=== PATIENT | female | born 1975 | race Caucasian/White ===

== ENCOUNTER 2021-05-16 14:04 | Inpatient (IN) ==
[2021-05-16] MEDS ORDERED: FAMOTIDINE 20MG IV PUSH 20 MG/5 ML SYR IV STA (16:36)
[2021-05-16] MEDS ORDERED: ONDANSETRON INJ 2 MG/ML 2 ML VIAL IV STA (16:36)
[2021-05-16] MEDS ORDERED: ACETAMINOPHEN 500 MG TAB PO STA (16:36)
[2021-05-16] MEDS ORDERED: SODIUM CHLORIDE 0.9% 500 ML IV SCH (16:45)
--- NOTE | 2021-05-16 16:50 | Emergency Department Note ---
Impression & Plan 2019 novel coronavirus-infected pneumonia (NCIP), Nausea & vomiting, Lightheadedness, Hypoxia ED Provider Note Provider: Nick Escoto MD DATE OF SERVICE: 05/16/2021 CHIEF COMPLAINT: Weakness, dehydration, Covid HISTORY OF PRESENT ILLNESS: Patient is a 46-year-old female denies significant past medical history presenting here today stating that she first began to have some head cold symptoms on May 04. Began with significant symptoms of fatigue and nausea and increased weakness on May 08. Tested + May 12 for Covid. Was not vaccinated for Covid. Reports has had some fevers although have minimized. Denies significant shortness of breath. Reports diffuse myalgias and some heartburn symptoms and a bit of upper abdominal pain. She states she has been coughing so much although is prominently dry that she is having little bit of pain in her chest wall. Patient denies any syncope or falls but states she feels lightheaded. Patient states for the past week she is really been unable to eat or drink much of anything. Patient has tried some Zofran tablets at home for several days without improvement of her symptoms that she got from her primary care doctor. Patient denies significant diarrhea. Patient's family members otherwise have been recovering and are doing better. REVIEW OF SYSTEMS: A total of 10 review of systems was obtained and negative except as stated above in the HPI. PAST MEDICAL HISTORY: As noted above MEDICATIONS: Zofran tablets the last several days and [id number] Tylenol last at 2 AM last night. SOCIAL HISTORY: Lives at home with and 4 children PHYSICAL EXAM: GENERAL: alert and oriented in no acute distress on stretcher but very fatigued appearing Head: normocephalic and atraumatic EYES: No injection, discharge or icterus. NECK: Trachea midline. LUNGS: Airway patent. No retractions with some slight tachypnea. HEART: Regular rate and rhythm. Minimal diffuse chest wall tenderness ABDOMEN: Soft with minimal epigastric tenderness. Not peritoneal. SKIN: Acyanotic, warm, dry, without rashes EXTREMITIES: Without swelling, tenderness or deformity NEUROLOGICAL: No focal deficits. No aphasia. No facial droop or slurred speech. EK bpm normal sinus rhythm. No PVC or PAC. No acute ST segment elevation or depression. QTC 432. CONTINUOUS CARDIAC MONITORING: was ordered and showed a heart rate of 70-100s bpm in normal sinus rhythm to sinus tachycardia Patient's laboratory studies and imaging reviewed. Differential includes Infection, dehydration, metabolic abnormality, hypo/hyperglycemia, electrolyte disturbance, anemia, hypoxia, cardiac sources, intracerebral event, toxicologic, neurologic, as well as other pathologies. IMPRESSION/MEDICAL DECISION MAKING: Patient is quite fatigued in appearance and is suffering aftereffects likely from Covid. Has been unable to eat or drink much. Given some IV fluids here as well as some Tylenol and Pepcid. Patient febrile upon arrival but lower s uspicion for bacterial infection at this time. Chest x-ray is obtained. Pulse ox is tenuous resting in the room alternating between 91 to 89% on room air. Patient did desaturate into the low 80s on room air shortly thereafter and was placed on oxygen. Given dexamethasone. Lower suspicion given her abdominal exam for acute intra-abdominal pathology such as perforation, cholecystitis, or appendicitis. EKG and troponin were completed but lower suspicion for acute ACS/NC, however the possibility of some demand ischemia given her illness and concerns for dehydration exist. Chest x-ray completed with patchy opacities compatible with viral pneumonia. Leukopenia consistent with her Covid infection as well as a slight AST elevation. No lipase elevation indicative of acute pancreatitis. No severe electrolyte abnormalities signs of renal dysfunction currently. No anemia. No troponin elevation. Patient on reassessment having some improvement of her symptoms but again requiring a small amount of oxygen here. Given this discussed with the patient the need for further care and evaluation here at the hospital and the hospitalist will be contacted. DIAGNOSIS: COVID-19 pneumonia, hypoxia, nausea and vomiting, lightheadedness DISPOSITION: Hospitalist will evaluate Patient was agreeable with this plan. 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 Verified 05/12/21 13:09 Home Meds Previous Rx's Medication Instructions Recorded ondansetron HCl 4 mg tablet 4 mg PO Q8H PRN #12 tab 05/14/21 Results & Data (ED) Vital Signs Vital Signs - 24 hr 05/16/21 14:07 05/16/21 17:23 Temperature 39 C H Temperature Source Oral Pulse Rate 101 H Respiratory Rate 30 H Blood Pressure 89/61 L Blood Pressure Mean 70 Pulse Oximetry 92 64 L Oxygen Delivery Method Room Air Nasal Cannula Oxygen Flow Rate 2 Sepsis Recent Fever Within 48 Hours Yes Sepsis New/Unexplained Change in Mental Status N/A Sepsis Action Taken by Nursing No Action Required Laboratory Data Result diagrams: 05/16/21 16:58 05/16/21 16:58 Lab Results 05/16/21 05/16/21 05/16/21 Range/Units 16:58 16:58 16:58 WBC 2.49 L (4.8-10.8) K/uL RBC 4.70 (4.2-5.4) M/uL Hgb 14.3 (12.0-16.0) g/dL Hct 42.5 (37-47) % MCV 90.4 (80-100) fL MCH 30.4 (25-34) pg MCHC 33.6 (32-36) g/dL RDW Std Deviation 41.8 (36.4-46.3) fL RDW Coeff of Yessi 12.6 (11.5-14.5) % Plt Count 133 (130-400) K/uL MPV 10.8 H (7.4-10.4) fL Immature Gran % (Auto) 0.0 % Neut % (Auto) 61.9 % Lymph % (Auto) 27.7 % [place] % (Auto) 10.0 % Eos % (Auto) 0.0 % Baso % (Auto) 0.4 % Neut # (Auto) 1.54 (1.4-6.5) K/uL Lymph # (Auto) 0.69 L (1.2-3.4) K/uL [place] # (Auto) 0.25 (0.11-0.59) K/uL Eos # (Auto) 0.00 (0-0.5) K/uL Baso # (Auto) 0.01 (0-0.2) K/uL Immature Gran # (Auto) 0.00 (0.00-0.02) K/uL Sodium 136 (136-145) mmol/L Potassium 3.9 (3.5-5.1) mmol/L Chloride 104 (98-107) mmol/L Carbon Dioxide 27 (21-32) mmol/L Anion Gap 5.0 (3-11) BUN 13 (7-18) mg/dl Creatinine 1.06 (0.6-1.2) mg/dl Est Cr Clr Drug Dosing Not Reportable Est GFR ( Amer) 73.4 ml/min Est GFR (Non-Af Amer) 63.4 ml/min BUN/Creatinine Ratio 12.4 (10-20) Glucose 96 (70-99) mg/dl Calcium 8.3 L (8.5-10.1) mg/dl Magnesium 2.1 (1.8-2.4) mg/dl Total Bilirubin 0.4 (0.2-1) mg/dl AST 47 H (15-37) U/L ALT 37 (12-78) U/L Alkaline Phosphatase 53 (45-117) U/L Troponin I < 0.015 (0-0.045) ng/ml Total Protein 7.0 (6.4-8.2) gm/dl Albumin 3.0 L (3.4-5.0) gm/dl Globulin 4.0 (2.5-4.0) gm/dl Albumin/Globulin Ratio 0.7 L (0.9-2) Lipase 300 (73-393) U/L Procalcitonin Cancelled TSH 0.566 (0.300-4.500) uIu/ml Specimen Hemolysis COVID-19 Eval Order SARS-CoV-2 (PCR) (Negative) 05/16/21 05/16/21 Range/Units 17:17 17:17 WBC (4.8-10.8) K/uL RBC (4.2-5.4) M/uL Hgb (12.0-16.0) g/dL Hct (37-47) % MCV (80-100) fL MCH (25-34) pg MCHC (32-36) g/dL RDW Std Deviation (36.4-46.3) fL RDW Coeff of Yessi (11.5-14.5) % Plt Count (130-400) K/uL MPV (7.4-10.4) fL Immature Gran % (Auto) % Neut % (Auto) % Lymph % (Auto) % [place] % (Auto) % Eos % (Auto) % Baso % (Auto) % Neut # (Auto) (1.4-6.5) K/uL Lymph # (Auto) (1.2-3.4) K/uL [place] # (Auto) (0.11-0.59) K/uL Eos # (Auto) (0-0.5) K/uL Baso # (Auto) (0-0.2) K/uL Immature Gran # (Auto) (0.00-0.02) K/uL Sodium (136-145) mmol/L Potassium (3.5-5.1) mmol/L Chloride (98-107) mmol/L Carbon Dioxide (21-32) mmol/L Anion Gap (3-11) BUN (7-18) mg/dl Creatinine (0.6-1.2) mg/dl Est Cr Clr Drug Dosing Est GFR ( Amer) ml/min Est GFR (Non-Af Amer) ml/min BUN/Creatinine Ratio (10-20) Glucose (70-99) mg/dl Calcium (8.5-10.1) mg/dl Magnesium (1.8-2.4) mg/dl Total Bilirubin (0.2-1) mg/dl AST (15-37) U/L ALT (12-78) U/L Alkaline Phosphatase (45-117) U/L Troponin I (0-0.045) ng/ml Total Protein (6.4-8.2) gm/dl Albumin (3.4-5.0) gm/dl Globulin (2.5-4.0) gm/dl Albumin/Globulin Ratio (0.9-2) Lipase (73-393) U/L Procalcitonin TSH (0.300-4.500) uIu/ml Specimen Hemolysis COVID-19 Eval Order Covid19 at [facility] SARS-CoV-2 (PCR) POSITIVE A* (Negative) Administered Medications Discontinued Medications Acetaminophen (Acetaminophen 500 Mg Tab) 1,000 mg PO NOW STA Stop: 05/16/21 16:37 Last Admin: 05/16/21 17:11 Dose: 1,000 mg Documented by: [id number] Dexamethasone Sodium Phosphate (DexamethasonePf 10 Mg/Ml Vial) 6 mg IV NOW ONE Stop: 05/16/21 17:11 Last Admin: 05/16/21 17:20 Dose: 6 mg Documented by: [id number] Sodium Chloride (Nss) 500 mls @ 999 mls/hr IV .Q31M ANJU Stop: 05/16/21 17:15 Last Admin: 05/16/21 17:11 Dose: 999 mls/hr Documented by: [id number] Famotidine (Pepcid 20mg Iv Push) 20 mg in 5 mls @ 2.5 mls/min IV NOW STA Stop: 05/16/21 16:37 Last Admin: 05/16/21 17:10 Dose: 2.5 mls/min Documented by: [id number] Ondansetron HCl (Ondansetron Inj 2 Mg/Ml 2 Ml Vial) 4 mg IV NOW STA Stop: 05/16/21 16:37 Last Admin: 05/16/21 17:08 Dose: 4 mg Documented by: [id number] Imaging Data Radiologist's Impression: Chest X-Ray 05/16/21 16:36 XR chest 1V portable HISTORY: 46 years-old Female weakness, COVID acute shortness of breath. COMPARISON: Chest radiograph 01/31/2013 TECHNIQUE: Portable AP view of the chest FINDINGS: Cardiomediastinal and hilar silhouettes are within normal limits. Patchy multifocal bilateral airspace opacities. No pneumothorax, large pleural effusion or overt pulmonary edema. No acute fracture. IMPRESSION: Patchy multifocal airspace opacities are compatible with viral pneumonia. ACT 112: Negative or not required by law. The above report was generated using voice recognition software. It may contain grammatical, syntax or spelling errors. Electronically signed by: Sav Bowden M.D. 05/16/2021 4:55 PM Discharge Plan Visit Data Chief Complaint: Vomiting Stated Complaint: VOMITING DEHYDRATED ED Provider: Nick Escoto Discharge Problem: 2019 novel coronavirus-infected pneumonia (NCIP), Nausea & vomiting, Lightheadedness, Hypoxia Patient Disposition: Being Evaluated by Hospitalist Forms Stand Alone Forms: [employer] Prescriptions Prescriptions: No Action ondansetron HCl 4 mg tablet 4 mg PO Q8H PRN (Reason: nausea and vomiting) Qty: 12 RF: 0 Referrals Referrals: Dulce Munguia PA-C [Primary Care Provider] - Discharge Problem: Nausea & vomiting Qualifiers: Vomiting type: unspecified Vomiting Intractability: non-intractable Qualified Code(s): R11.2 - Nausea with vomiting, unspecified
--- NOTE | 2021-05-16 16:57 | XRay Report ---
XR chest 1V portable HISTORY: 46 years-old Female weakness, COVID acute shortness of breath. COMPARISON: Chest radiograph 01/31/2013 TECHNIQUE: Portable AP view of the chest FINDINGS: Cardiomediastinal and hilar silhouettes are within normal limits. Patchy multifocal bilateral airspac e opacities. No pneumothorax, large pleural effusion or overt pulmonary edema. No acute fracture. IMPRESSION: Patchy multifocal airspace opacities are compatible with viral pneumonia. ACT 112: Negative or not required by law. The above report was generated using voice recognition software. It may contain grammatical, syntax o r spelling errors. Electronically signed by: Sav Bowden M.D. 05/16/2021 4:55 PM
[2021-05-16] MEDS ORDERED: dexAMETHasone**PF** 10 MG/ML VIAL IV ONE (17:10)
[2021-05-16 17:28] LABS: Basophils # (auto) 0.01 K/uL (0-0.2); Basophils % (auto) 0.4 %; Hematocrit (blood only) 42.5 % (37-47); Hemoglobin 14.3 g/dL (12.0-16.0); Lymphocytes # (auto) 0.69 K/uL (1.2-3.4); Lymphocytes % (auto) 27.7 %; Mean Corpuscular Hemoglobin 30.4 pg (25-34); Mean Corpuscular Hgb Conc 33.6 g/dL (32-36); Mean Corpuscular Volume 90.4 fL (80-100); Mean Platelet Volume 10.8 fL (7.4-10.4); Monocytes # (auto) 0.25 K/uL (0.11-0.59); Neutrophils # (auto) 1.54 K/uL (1.4-6.5); Neutrophils % (auto) 61.9 %; Platelet Count 133 K/uL (130-400); RDW Coefficient of Variation 12.6 % (11.5-14.5); RDW Standard Deviation 41.8 fL (36.4-46.3); White Blood Count 2.49 K/uL (4.8-10.8)
[2021-05-16 17:53] LABS: Alanine Aminotransferase 37 U/L (12-78); Aspartate Aminotransferase 47 U/L (15-37); BUN Creatinine Ratio 12.4 (10-20); Blood Urea Nitrogen 13 mg/dl (7-18); Calcium 8.3 mg/dl (8.5-10.1); Carbon Dioxide 27 mmol/L (21-32); Chloride 104 mmol/L (98-107); Est GFR (African American) 73.4 ml/min; Est GFR (Non-African American) 63.4 ml/min; Glucose 96 mg/dl (70-99); Lipase 300 U/L (73-393); Magnesium 2.1 mg/dl (1.8-2.4); Potassium 3.9 mmol/L (3.5-5.1); Sodium 136 mmol/L (136-145)
[2021-05-16 17:57] LABS: Albumin Globulin Ratio 0.7 (0.9-2); Alkaline Phosphatase 53 U/L (45-117); Bilirubin,Total 0.4 mg/dl (0.2-1); Thyroid Stimulating Hormone 0.566 uIu/ml (0.300-4.500); Troponin I < 0.015 ng/ml (0-0.045)
[2021-05-16 19:07] LABS: C Reactive Protein 2.3 mg/dl (0-0.29); Ferritin 1406.1 ng/ml (8-388)
--- NOTE | 2021-05-16 19:11 | History & Physical Report ---
Date of Service May 16, 2021 Assessment & Plan (1) COVID: Plan: COVID 19 pneumonia with hypoxia- day 12 of illness - supportive care at this time - Hypoxia to 85 % on room air- continue decadron - Decadron 6mg IV daily - Oxygen support - NC/HFNC/CPAP/BIPAP/Intubation as needed - Self rotation and proning - CRP 2.30, ESR- 20, Ferritin 1406.1, PCT <0.05, Fibrinogen pending - Lymphopenia- follow daily CBC- likely related to COVID (2) Hypoxia: Plan: Hypoxia without respiratory failure - Continue to support and self prone as above (3) Hypocalcemia: Plan: 1GM calcium gluconate IV - likely related to poor nutritional intake - follow (4) DVT prophylaxis: Plan: Lovenox 40mg Subq BID- fibrinogen pending - adjust as warranted History of Present Illness Chief Complaint: Dizziness, Covid, shortness of breath Primary Care Provider: Dulce Munguia PA-C 46 YOF with past medical history of: carpal tunnel. Patient comes to the EMD today for known COVID with symptoms starting 28September- she had positive test on . She is not vaccinated. She started with headache, fevers, body aches and with nausea and vomiting. She has lost her sense of taste and smell. She continues to have nausea and decreased oral intake. She was feeling dizzy and fatigued and feels "much better" than when she came in. She received 500 ml saline, Zofran, and Pepcid. She was also noted to be hypoxic on room air and was placed on 2LNC with her SPo2 increase to 92-94% and RR in the low 20s. The patient is still having joint pain to her back and knees, which she feels is from being run down and lying in bed so much. Patient is on ~ day 12 of her illness. We discussed her day of illness and not likely benefiting from Remdesivir at this time, we discussed self rotational therapy and proning. Patient will be admitted to continue Decadron, IVF, symptom management and oxygen therapy. Will send biomarkers. Patient is unvaccinated and her COVID test on admission: POSITIVE Allergies Allergy/AdvReac Type Severity Reaction Status Date / Time lidocaine Allergy . Verified 05/12/21 13:09 Home Medications Medication Instructions Recorded Confirmed Type ondansetron HCl 4 mg tablet 4 mg PO Q8H PRN #12 tab 05/14/21 05/16/21 Rx acetaminophen 500 mg tablet 1,000 mg PO Q6H PRN 05/16/21 05/16/21 History (Tylenol Extra Strength) Past Med/Surg History Medical History Diarrhea Goiter Premenstrual syndrome Reflex incontinence Vitamin D insufficiency Social History Smoking Status: Never smoker Hx Alcohol Use: Yes Alcohol type: hard liquor Hx Substance Use: No Preferred Language: Mohawk Communication Ability: Effective Licensed Massage Therapist Required: No Beliefs That Will Affect Care: None marital status: Current Living Situation: Spouse Current Living Situation Comment: Lives with at home current occupational status: employed 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 How many Children do You have: 2 Other Information That Helps Us Care for You: No Feels Safe at Home: Yes Safety Concerns: Feels Safe At This Time caffeine: Yes Dental Care, Regularly: No Review of Systems Review of Systems: REVIEW OF SYSTEMS: Constitutional: (+) fever, sweats or chills Eyes: No diplopia, no worsening or blurred vision ENT: normal hearing, no trouble swallowing Respiratory: (+) cough, dyspnea at rest or on exertion Cardiovascular: No chest pain, tightness or palpitations Abdomen: nausea, vomiting, diarrhea, No pain, or constipation Musculoskeletal: (+) joint pain, calf pain, swelling Neurologic: No weakness, numbness/tingling, or balance problems Psychiatric: No anxiety or depression Skin: No rash or itch Physical Exam Physical Exam: PHYSICAL EXAM: General: awake, alert, no apparent distress Head: Normocephalic, atraumatic ENT: PERRL, EOMI, no pharyngeal exudate, mucous membranes moist Neuro: AAO x 3, speech clear and appropriate, strength intact bilaterally 5/5, sensation intact and equal all extremities and dermatomes, no pronator drift Chest: equal rise and fall of the chest, no accessory muscle use, no heaves or thrills, Clear to auscultation, on room air, Cardiac: Regular rate and rhythm, telemetry reviewed, skin warm dry, cap refill <3 seconds, peripheral pulses +2 no JVD, no murmur, no JVD, no edema GI: NABS x 4 quadrants, soft, nontender to palpation, no rebound, guarding or tenderness : Spontaneously voiding, no pain, no CVA tenderness, Extremities: Normal inspection, no peripheral edema or erythema, calfs nontender to palpation Psych: Normal mood and affect Skin: no rash or erythema Results & Data Results & Data ([facility]) Vital Signs (Past 12 Hours) Vital Signs Temp Pulse Resp BP Pulse Ox 05/16/21 18:40 90 25 H 109/58 L 93 05/16/21 18:30 93 H 18 91 05/16/21 18:20 91 H 24 92 05/16/21 18:10 91 H 15 94 05/16/21 18:00 93 H 18 94 05/16/21 17:50 94 H 22 94 05/16/21 17:40 92 H 25 H 95 05/16/21 17:30 91 H 25 H 94 05/16/21 17:23 64 L 05/16/21 17:20 92 H 23 94 05/16/21 17:10 93 H 17 94 05/16/21 17:00 99 H 21 94 05/16/21 16:50 99 H 20 97 05/16/21 16:40 96 H 29 H 85 L 05/16/21 16:34 99 H 23 92 05/16/21 14:07 39 C H 101 H 30 H 89/61 L 92 Laboratory Results Abnormal lab results 05/16/21 05/16/21 05/16/21 Range/Units 16:58 16:58 17:17 WBC 2.49 L (4.8-10.8) K/uL MPV 10.8 H (7.4-10.4) fL Lymph # (Auto) 0.69 L (1.2-3.4) K/uL Calcium 8.3 L (8.5-10.1) mg/dl Ferritin (8-388) ng/ml AST 47 H (15-37) U/L C-Reactive Protein (0-0.29) mg/dl Albumin 3.0 L (3.4-5.0) gm/dl Albumin/Globulin Ratio 0.7 L (0.9-2) SARS-CoV-2 (PCR) POSITIVE A* (Negative) 05/16/21 Range/Units 18:30 WBC (4.8-10.8) K/uL MPV (7.4-10.4) fL Lymph # (Auto) (1.2-3.4) K/uL Calcium (8.5-10.1) mg/dl Ferritin 1406.1 H (8-388) ng/ml AST (15-37) U/L C-Reactive Protein 2.30 H (0-0.29) mg/dl Albumin (3.4-5.0) gm/dl Albumin/Globulin Ratio (0.9-2) SARS-CoV-2 (PCR) (Negative) Diagnostic Findings Chest X-Ray 05/16/21 16:36 XR chest 1V portable HISTORY: 46 years-old Female weakness, COVID acute shortness of breath. COMPARISON: Chest radiograph 01/31/2013 TECHNIQUE: Portable AP view of the chest FINDINGS: Cardiomediastinal and hilar silhouettes are within normal limits. Patchy multifocal bilateral airspace opacities. No pneumothorax, large pleural effusion or overt pulmonary edema. No acute fracture. IMPRESSION: Patchy multifocal airspace opacities are compatible with viral pneumonia. ACT 112: Negative or not required by law. The above report was generated using voice recognition software. It may contain grammatical, syntax or spelling errors. Electronically signed by: Sav Bowden M.D. 05/16/2021 4:55 PM Medications Administered Home Medications ondansetron HCl 4 mg tablet 4 mg PO Q8H PRN #12 tab 05/14/21 [Rx] acetaminophen 500 mg tablet (Tylenol Extra Strength) 1,000 mg PO Q6H PRN 05/16/21 [History Confirmed 05/16/21] Discontinued Medications Acetaminophen (Acetaminophen 500 Mg Tab) 1,000 mg PO NOW STA Stop: 05/16/21 16:37 Last Admin: 05/16/21 17:11 Dose: 1,000 mg Documented by: [id number] Dexamethasone Sodium Phosphate (DexamethasonePf 10 Mg/Ml Vial) 6 mg IV NOW ONE Stop: 05/16/21 17:11 Last Admin: 05/16/21 17:20 Dose: 6 mg Documented by: [id number] Sodium Chloride (Nss) 500 mls @ 999 mls/hr IV .Q31M ANJU Stop: 10/09/21 17:15 Last Infusion: 05/16/21 18:00 Dose: 0 mls/hr Documented by: [id number] Admin: 05/16/21 17:11 Dose: 999 mls/hr Documented by: [id number] Famotidine (Pepcid 20mg Iv Push) 20 mg in 5 mls @ 2.5 mls/min IV NOW STA Stop: 05/16/21 16:37 Last Admin: 05/16/21 17:10 Dose: 2.5 mls/min Documented by: [id number] Ondansetron HCl (Ondansetron Inj 2 Mg/Ml 2 Ml Vial) 4 mg IV NOW STA Stop: 05/16/21 16:37 Last Admin: 05/16/21 17:08 Dose: 4 mg Documented by: [id number] ECG Additional Comments: Normal sinus rhythm Normal ECG When compared with ECG of 31-JAN-2013 12:52, Code Status & VTE Plan Code Status CODE: FULL VTE: SCDs, Lovenox 40mg BID subq Supervising Physician Co-Signing Physician Notes HYPOID GEAR GENERATOR Supervision note: I have personally seen and examined the patient and discussed and verified the ferrari points of the history and physical along with the plan with KASEY degroot the following exceptions and/or additions: This patient is a 46-year-old female with no significant past medical history who presents to the ER after 12 days of Covid symptoms with fevers, nausea/ vomiting and diarrhea with poor p.o. intake, headaches, lightheadedness, body aches, and dry cough. She was febrile on arrival and appeared dry and was given IV fluids and Pepcid as well as Tylenol. She was noted to be hypoxic at 84% on room air after returning from a walk to the bathroom and was placed on 2 L nasal cannula. Her chest x-ray did show bilateral pneumonia. She felt much improved after the above interventions, but given hypoxia, she will be admitted for acute respiratory failure with hypoxia in the setting of Covid-19 pneumonia as well as for dehydration and supportive care. History and ROS reviewed as above Vitals reviewed Gen: AAOx3, NAD HEENT: Anicteric sclerae, EOMI CV: RRR no mgr nl S1S2 Pulm: Positive crackles at lower lung baez bilaterally, otherwise clear Abd: +BS soft NT ND no masses or hernias Ext: No edema, 2+ DP pulses Skin: No rashes, warm/dry Neuro: Full strength throughout Laboratory values reviewed Chest x-ray image personally reviewed by me ECG reviewed-normal 46-year-old female here with COVID-19 pneumonia and acute respiratory failure with hypoxia With persistent fevers, however procalcitonin is negative and she is not having productive cough.-Defer on antibiotics at this time. Fevers most likely secondary to cytokine storm/inflammatory response CRP is only minimally elevated at 2 Start dexamethasone 6 mg IV daily She does not meet criteria for remdesivir as she is on day 12 of illness. She does not meet criteria for tocilizumab or baricitinib as she does not have severe hypoxia Most likely will do well from this point out Likely will be here for 2 days and hopefully will be able to send home without oxygen therapy Lovenox 40 mg twice daily for DVT prophylaxis PG Care Time/CCT Total # of Minutes Spent Total Time Spent with Patient: Total time spent is greater than 50% in coordination of care (as documented) at patient's floor/unit and/or counseling patient: Coding Level of Care Code 38436 Initial Inpt Care Lvl 3 Diagnoses COVID U07.1 Hypoxia R09.02 DVT prophylaxis Z29.9 Hypocalcemia E83.51
[2021-05-16] MEDS ORDERED: ONDANSETRON INJ 2 MG/ML 2 ML VIAL IV PRN (20:46)
[2021-05-16] MEDS ORDERED: ACETAMINOPHEN 325 MG TAB PO PRN (20:46)
[2021-05-16] MEDS ORDERED: ALBUTEROL HFA 8 GM INHALER INH PRN (20:46)
[2021-05-16] MEDS ORDERED: CALCIUM GLUCONATE 10% 1,000 MG in SODIUM CHLORIDE 0.9% 50 ML IV ONE (21:00)
[2021-05-16] MEDS ORDERED: ONDANSETRON 4 MG OD TAB PO PRN (21:19)
[2021-05-16 21:55] LABS: Fibrinogen 388 mg/dl (184-400)
[2021-05-16] MEDS: ENOXAPARIN INJ 40 MG/0.4 ML SYR SQ SCH (22:04)
[2021-05-17 03:29] LABS: Appearance Urine Clear (Clear); Bilirubin Urine Negative (Negative); Blood Urine Negative (Negative); Color Urine Yellow; Glucose Urine UA Negative (Negative); Ketones Urine 2+ (Negative); Leukocyte Esterase Urine Negative (Negative); Nitrite Urine Negative (Negative); Protein Urine Negative (Negative); Specific Gravity Urine 1.015 (1.000-1.030); Urobilinogen Urine Negative (Negative); pH Urine 5.5 (4.5-7.5)
[2021-05-17 07:48] LABS: Basophils # (auto) 0.01 K/uL (0-0.2); Basophils % (auto) 0.4 %; Hematocrit (blood only) 43.9 % (37-47); Hemoglobin 14.6 g/dL (12.0-16.0); Lymphocytes # (auto) 0.64 K/uL (1.2-3.4); Lymphocytes % (auto) 26.2 %; Mean Corpuscular Hemoglobin 30.5 pg (25-34); Mean Corpuscular Hgb Conc 33.3 g/dL (32-36); Mean Corpuscular Volume 91.8 fL (80-100); Mean Platelet Volume 10.3 fL (7.4-10.4); Monocytes # (auto) 0.28 K/uL (0.11-0.59); Monocytes % (auto) 11.5 %; Neutrophils # (auto) 1.51 K/uL (1.4-6.5); Neutrophils % (auto) 61.9 %; Platelet Count 151 K/uL (130-400); RDW Coefficient of Variation 12.4 % (11.5-14.5); Red Blood Count 4.78 M/uL (4.2-5.4); White Blood Count 2.44 K/uL (4.8-10.8)
[2021-05-17 08:03] LABS: Albumin Level 2.9 gm/dl (3.4-5.0); BUN Creatinine Ratio 15.3 (10-20); C Reactive Protein 2.29 mg/dl (0-0.29); Calcium 8.4 mg/dl (8.5-10.1); Creatinine Clr Calc Pharmacy 107.4 ml/min; Est GFR (African American) 97.3 ml/min; Est GFR (Non-African American) 83.9 ml/min; Potassium 3.8 mmol/L (3.5-5.1)
[2021-05-17 08:06] LABS: Albumin Globulin Ratio 0.7 (0.9-2); Bilirubin,Total 0.3 mg/dl (0.2-1); Total Protein 6.9 gm/dl (6.4-8.2)
--- NOTE | 2021-05-17 08:23 | Hospitalist Progress Note ---
Date of Service May 17, 2021 Assessment & Plan (1) COVID: Plan: COVID 19 pneumonia with hypoxia- day 12 of illness - supportive care at this time - Hypoxia to 85 % on room air- requiring 4 liters, continue decadron 6mg IV daily - Oxygen support -still on nasal canulae - Self rotation and proning - CRP 2.30, ESR- 20, Ferritin 1406.1, PCT <0.05, Fibrinogen pending - Lymphopenia- follow daily CBC- likely related to COVID (2) Hypoxia: Plan: Hypoxia with respiratory distress has had RR 25-29 at times - Continue to support and self prone as above (3) Hypocalcemia: Plan: 1GM calcium gluconate IV - likely related to poor nutritional intake most recently - follow (4) DVT prophylaxis: Plan: Lovenox 40mg Subq BID- fibrinogen pending - adjust as warranted Admission and Anticipated Discharge Date Admission Date: May 16, 2021 Subjective pt is doing fair, is still with cough and significant [place], still with loss of taste Review of Systems Review of Systems: Mild distress and fatigue no headache, no visual changes no speech or swallowing issues no chest pain, pressure or palpitations shortness of breath, non productive cough no wheezes no abdominal pain, nausea or vomiting, does have constipation no dysuria, hematuria or frequency no focal joint pain or swelling no back pain, CVA tenderness or radicular pain no bruising, bleeding or rashes no focal signs of weakness or numbness or altered sensation no complaints of anxiety or depression.. Physical Exam Physical Exam: The patient appeared in mild to moderate respiratory distress Vital signs as documented. Head exam is normocephalic atraumatic Neck is without JVD, thyromegaly, or carotid bruits. Lungs are clear fine crackles Cardiac exam, Rhythm is regular.. No murmurs, rubs or gallops. Abdominal exam reveals normal bowel sounds, soft non tender, no masses Extremities are nonedematous and both pedal pulses are present Neurologic exam is alert and oriented, no focal loss of strength or sensation Skin is without bruises or rashes Psychologically is without concerns for anxiety or depression Results & Data Results & Data ([facility]) Vital Signs (Past 12 Hours) Vital Signs Temp Pulse Pulse Resp BP Pulse Ox 05/17/21 07:44 97.7 F 69 20 97/61 L 97 05/17/21 05:05 97.7 F 64 18 111/69 98 05/16/21 23:50 76 05/16/21 20:47 98.4 F 82 18 102/66 94 PG Care Time/CCT Total # of Minutes Spent Total Time Spent with Patient: Total time spent is greater than 50% in coordination of care (as documented) at patient's floor/unit and/or counseling patient: Coding Level of Care Code 37658 Subseq Hosp Care Lvl 2 Diagnoses COVID U07.1 Hypoxia R09.02 Hypocalcemia E83.51 DVT prophylaxis Z29.9
[2021-05-17] MEDS: ENOXAPARIN INJ 40 MG/0.4 ML SYR SQ SCH ×2 (10:10→21:50)
[2021-05-17] MEDS: dexAMETHasone 6 MG in SYRINGE 0 ML IV SCH (10:10)
--- NOTE | 2021-05-17 11:55 | Electrocardiogram Report ---
Test Reason : Blood Pressure : / mmHG Vent. Rate : 093 BPM Atrial Rate : 093 BPM P-R Int : 132 ms QRS Dur : 086 ms QT Int : 348 ms P-R-T Axes : 016 056 004 degrees QTc Int : 432 ms Normal sinus rhythm Nonspecific T wave abnormality Abnormal ECG When compared with ECG of 31-JAN-2013 12:52, No significant change was found Confirmed by Eusebio Mayorga ([id number]) on 05/17/2021 11:55:20 AM Referred By: REFERRED SELF Confirmed By:Eusebio Mayorga
[2021-05-18 06:35] LABS: Basophils # (auto) 0.01 K/uL (0-0.2); Basophils % (auto) 0.2 %; Hematocrit (blood only) 41.2 % (37-47); Hemoglobin 13.9 g/dL (12.0-16.0); Lymphocytes # (auto) 0.83 K/uL (1.2-3.4); Lymphocytes % (auto) 18.2 %; Mean Corpuscular Hemoglobin 30.6 pg (25-34); Mean Corpuscular Hgb Conc 33.7 g/dL (32-36); Mean Corpuscular Volume 90.7 fL (80-100); Mean Platelet Volume 10.3 fL (7.4-10.4); Monocytes # (auto) 0.47 K/uL (0.11-0.59); Monocytes % (auto) 10.3 %; Neutrophils # (auto) 3.26 K/uL (1.4-6.5); Neutrophils % (auto) 71.3 %; Platelet Count 181 K/uL (130-400); RDW Coefficient of Variation 12.6 % (11.5-14.5); RDW Standard Deviation 42.3 fL (36.4-46.3); Red Blood Count 4.54 M/uL (4.2-5.4); White Blood Count 4.57 K/uL (4.8-10.8)
--- NOTE | 2021-05-18 08:00 | Hospitalist Progress Note ---
Date of Service May 18, 2021 Assessment & Plan (1) COVID: Plan: COVID 19 pneumonia, about 10 days into illness on admission stable on 4L today, 96%, can titrate down, move to medical floor as she is improving dexamethasone 6mg IV daily, day 3 - Self rotation and proning, sitting OOB in chair for several hours, incentive spirometer anticipate d/c to home in 2-3 days once off oxygen (2) Hypoxia: Plan: due to COVID pneumonia improving, on 4L today but saturations 96% self proning is helping (3) Hypocalcemia: Plan: 1GM calcium gluconate IV - likely related to poor nutritional intake most recently no calcium level today, can repeat as needed (4) DVT prophylaxis: Plan: Lovenox 40mg Subq BID Admission and Anticipated Discharge Date Admission Date: May 16, 2021 Subjective patient feels great today, no issues overnight except some difficulty sleeping due to being in hospital eating and drinking well, no diarrhea has a cough with a little bit of sputum production, no fever/chills sitting up in the chair for several hours and also laying prone intermittently 96% on 4L, will move to medical floor, discussed getting her home once on room air reviewed chart since admission Review of Systems Review of Systems: All systems reviewed & are unremarkable except as noted in Subjective Respiratory: + cough, + dyspnea, + dyspnea on exertion and + sputum production Physical Exam Physical Exam: General: well developed, well nourished, no acute distress, ill appearing Neck: supple, trachea midline, normal thyroid Lungs: clear to auscultation bilaterally, slightly tachypneic, no accessory muscle use, no distress Heart: regular S1 and S2, no murmur, peripheral pulses normal, capillary refill normal, no edema Abdomen: soft, NT, ND, + BS, no hepatomegaly, normal to percussion Extremities: normal in appearance, no cyanosis, no petechiae, strength is 5/5 bilaterally Neuro: awake, cooperative, moves all extremities, no focal motor deficits, CN II-XII intact, sensation in extremities intact, normal speech Skin: warm, dry, no rash, normal turgor Psych: Awake, alert oriented x 3, euthymic affect Results & Data Results & Data ([facility]) Vital Signs (Past 12 Hours) Vital Signs Temp Pulse Pulse Resp BP Pulse Ox 05/18/21 06:54 36.6 C 74 17 106/71 94 05/18/21 03:45 36.7 C 71 19 103/68 95 05/17/21 23:03 37 C 78 14 104/64 97 05/17/21 20:46 85 05/17/21 20:41 36.7 C 77 14 107/72 95 Laboratory Results Laboratory Results - last 24 hr 05/18/21 05:43 WBC 4.57 L RBC 4.54 Hgb 13.9 Hct 41.2 MCV 90.7 MCH 30.6 MCHC 33.7 RDW Std Deviation 42.3 RDW Coeff of Yessi 12.6 Plt Count 181 MPV 10.3 Immature Gran % (Auto) 0.0 Neut % (Auto) 71.3 Lymph % (Auto) 18.2 [place] % (Auto) 10.3 Eos % (Auto) 0.0 Baso % (Auto) 0.2 Neut # (Auto) 3.26 Lymph # (Auto) 0.83 L [place] # (Auto) 0.47 Eos # (Auto) 0.00 Baso # (Auto) 0.01 Immature Gran # (Auto) 0.00 Medications Administered Current Inpatient Medications Acetaminophen (Acetaminophen 325 Mg Tab) 650 mg PO Q4H PRN PRN Reason: Pain or Fever Stop: 06/15/21 20:45 Albuterol (Albuterol Hfa 8 Gm Inhaler) 2 puffs INH Q4 PRN PRN Reason: wheeze, shortness of breath Stop: 06/15/21 20:45 Enoxaparin Sodium (Enoxaparin Inj 40 Mg/0.4 Ml Syr) 40 mg SQ Q12H ANJU Stop: 06/15/21 21:59 Last Admin: 05/18/21 08:23 Dose: 40 mg Documented by: Dexamethasone 6 mg/ Syringe 1.5 mls @ 1 mls/min IV DAILY ANJU Stop: 05/27/21 08:59 Last Admin: 05/18/21 08:23 Dose: 1 mls/min Documented by: Ondansetron HCl (Ondansetron 4 Mg Od Tab) 4 mg PO Q8H PRN PRN Reason: Nausea And Vomiting Stop: 06/15/21 21:18 Ondansetron HCl (Ondansetron Inj 2 Mg/Ml 2 Ml Vial) 4 mg IV Q6H PRN PRN Reason: Nausea Stop: 06/15/21 20:45 PG Care Time/CCT Total # of Minutes Spent Total Time Spent with Patient: Total time spent is greater than 50% in coordination of care (as documented) at patient's floor/unit and/or counseling patient: Coding Level of Care Code 12972 Subseq Hosp Care Lvl 2 Diagnoses COVID U07.1 Hypoxia R09.02 Hypocalcemia E83.51 DVT prophylaxis Z29.9
[2021-05-18] MEDS: ENOXAPARIN INJ 40 MG/0.4 ML SYR SQ SCH ×2 (08:23→21:53)
[2021-05-18] MEDS: dexAMETHasone 6 MG in SYRINGE 0 ML IV SCH (08:23)
[2021-05-19 08:07] LABS: Basophils # (auto) 0.01 K/uL (0-0.2); Basophils % (auto) 0.2 %; Hematocrit (blood only) 42.7 % (37-47); Immature Granulocytes # (auto) 0.01 K/uL (0.00-0.02); Immature Granulocytes % (auto) 0.2 %; Lymphocytes # (auto) 1.07 K/uL (1.2-3.4); Lymphocytes % (auto) 23.2 %; Mean Corpuscular Hemoglobin 30.4 pg (25-34); Mean Corpuscular Hgb Conc 32.8 g/dL (32-36); Mean Corpuscular Volume 92.8 fL (80-100); Mean Platelet Volume 10.3 fL (7.4-10.4); Monocytes # (auto) 0.43 K/uL (0.11-0.59); Monocytes % (auto) 9.3 %; Neutrophils # (auto) 3.09 K/uL (1.4-6.5); Neutrophils % (auto) 67.1 %; Platelet Count 211 K/uL (130-400); RDW Coefficient of Variation 12.4 % (11.5-14.5); RDW Standard Deviation 41.7 fL (36.4-46.3); White Blood Count 4.61 K/uL (4.8-10.8)
[2021-05-19] MEDS: dexAMETHasone 6 MG in SYRINGE 0 ML IV SCH (09:11)
[2021-05-19] MEDS: ENOXAPARIN INJ 40 MG/0.4 ML SYR SQ SCH (10:02)
--- NOTE | 2021-05-19 11:10 | Discharge Summary ---
Date of Service May 19, 2021 Admission HPI Per Admitting Provider 46 YOF with past medical history of: carpal tunnel. Patient comes to the EMD today for known COVID with symptoms starting 28September- she had positive test on . She is not vaccinated. She started with headache, fevers, body aches and with nausea and vomiting. She has lost her sense of taste and smell. She continues to have nausea and decreased oral intake. She was feeling dizzy and fatigued and feels "much better" than when she came in. She received 500 ml saline, Zofran, and Pepcid. She was also noted to be hypoxic on room air and was placed on 2LNC with her SPo2 increase to 92-94% and RR in the low 20s. The patient is still having joint pain to her back and knees, which she feels is from being run down and lying in bed so much. Patient is on ~ day 12 of her illness. We discussed her day of illness and not likely benefiting from Remdesivir at this time, we discussed self rotational therapy and proning. Patient will be admitted to continue Decadron, IVF, symptom management and oxygen therapy. Will send biomarkers. Patient is unvaccinated and her COVID test on admission: POSITIVE Principal Diagnosis COVID 19 pneumonia Acute hypoxia Discharge Exam General: well developed, well nourished, no acute distress, comfortable Neck: supple, trachea midline, normal thyroid Lungs: clear to auscultation bilaterally, normal respiratory effort, no accessory muscle use, no distress Heart: regular S1 and S2, no murmur, peripheral pulses normal, capillary refill normal, no edema Abdomen: soft, NT, ND, + BS, no hepatomegaly, normal to percussion Extremities: normal in appearance, no cyanosis, no petechiae, strength is 5/5 bilaterally Neuro: awake, cooperative, moves all extremities, no focal motor deficits, CN II-XII intact, sensation in extremities intact, normal speech Skin: warm, dry, no rash, normal turgor Psych: Awake, alert oriented x 3, euthymic affect Discharge Data Allergies Allergy/AdvReac Type Severity Reaction Status Date / Time lidocaine Allergy . Verified 05/12/21 13:09 Consultations 05/16/21 18:02 ED Decision to Admit Stat Hospital Course (1) COVID: COVID 19 pneumonia, about 10 days into illness on admission stable on room air today dexamethasone 6mg IV daily, day 4 change to dexamethasone 6mg PO daily for 6 more days - Self rotation and proning, sitting OOB in chair for several hours, incentive spirometer 2 step today shows no need for oxygen at rest or on exertion d/c to home, stay off work for additional week, stay well nourished and well hydrated (2) Hypoxia: due to COVID pneumonia was on 4L initially, titrated down to room air today feels well, wants to go home (3) Hypocalcemia: 1GM calcium gluconate IV on admission - likely related to poor nutritional intake most recently (4) DVT prophylaxis: Lovenox 40mg Subq BID Total Time Total Time Spent Total Time Spent (In Minutes): 32 Total Time Includes: Examination of the Patient, Discharge Planning and Medication Reconciliation Discharge Plan Discharge Items Patient Disposition: Home - Self-Care Reason For Visit: COVID Discharge Diagnosis: COVID 19 pneumonia Acute hypoxic respiratory failure, resolved Condition on Discharge: Good Goals: complete course of dexamethasone stay well nourished, well hydrated, get rest Activity: Resume your previous activity Driving/Machine Use: No limitations Weightbearing: Full weightbearing Non-emergency contact: Primary Care Provider Call non-emergency contact if: you have any medication questions and your symptoms worsen Follow-up/Referrals: Dulce Munguia PA-C [Primary Care Provider] - (one week) Diet: Regular Addtl Attending Provider Instructions: Medication: - DEXAMETHASONE: 6mg daily for 6 more days, starting tomorrow COVID 19 pneumonia, acute hypoxic respiratory failure responded well to treatment with steroids, oxygen down to room air today, ambulated with respiratory therapy and no oxygen needed on exertion either complete course of dexamethasone, get plenty of rest, stay well nourished and well hydrated Pending Studies at Discharge: No Stand-Alone Forms: [employer], Work/School Release, Smoking Cessation Medications and DC Order Prescriptions: New dexamethasone 4 mg tablet 6 mg PO DAILY 6 Days Qty: 9 RF: 0 Continued ondansetron HCl 4 mg tablet 4 mg PO Q8H PRN (Reason: nausea and vomiting) Qty: 12 RF: 0 acetaminophen [Tylenol Extra Strength] 500 mg Tablet 1,000 mg PO Q6H PRN (Reason: Fever Or Pain) RF: 0 Discharge Orders: Discharge Order (Routine); Ordered 10/12/21 Ordered By: Rony Kent Admission Data Admit Date/Time: 05/16/21 19:00 Attending Provider: Rony Kent Admit Provider: Kaylin Ignacio Primary Care Provider: Dulce Munguia Other Providers: Kaylin Ignacio Coding Level of Care Code D/C DAY MANAGEMENT >30 MINS Diagnoses COVID U07.1 Hypoxia R09.02 Hypocalcemia E83.51 DVT prophylaxis Z29.9
== END 2021-05-19 14:02 | disposition home or self-care (01) | DRG 177 ==
LOC: ED 14:04 → 2S 18:57 → SUATTDRO 18:57 → 2S 20:19 → 3W 05-18 09:44

== ENCOUNTER 2023-05-26 10:36 | Inpatient (IN) ==
--- NOTE | 2023-05-26 11:40 | Emergency Department Note ---
Impression & Plan Visual disturbance, Headache, Paresthesia ED Provider Note CHIEF COMPLAINT: Visual disturbance, paresthesias HISTORY OF PRESENTING ILLNESS: This 48-year-old female patient presents to the emergency department for evaluation of visual disturbances and paresthesias. The patient states that she has had a kaleidoscope like effect intermittently in her eyes along with mild left-sided temporal headaches for the past 4 days. Today when the symptoms happened she also had numbness to the left side of her face along with her left arm and hand going numb. The symptoms have been intermittent, but seem to be happening more frequently now. Having symptoms at least twice a day now. The symptoms are in both eyes, but sometimes only in one eye at a time and sometimes both eyes. The symptoms last from 8-15 minutes and then she returns back to baseline. However, today her vision did not return to 100% normal after her last episode. The headaches are mild and mostly near the left taoist. The patient has a history of migraines, but never symptoms like this before. Has never had vision changes like this before. Her migraines typically are without aura and usually are very painful. The symptoms are not very painful. She has also had nasal congestion and mild sore throat for the past 4 days as well. No fevers. Has had some chest tightness as well, but she thinks it is from her cold. She has taken home COVID tests that were negative. She saw someone from her PCP's office on 05/23/2023 for the symptoms and MRI of the brain as well as carotid ultrasound were discussed, but the patient declined to have these done. However, the symptoms have not resolved and are getting worse and the patient is concerned. The patient's last eye doctor appointment was in September 2022 with no abnormalities. She wears contacts and glasses. No personal history of blood clots, but her mother, grandmother, and both brothers have a history of multiple blood clots as well as multiple strokes "coming from their heart." The patient denies recent long car or plane rides or recent injury/trauma/surgery. Denies any hormonal medication use. Denies any hemoptysis. Denies leg swelling or pain. REVIEW OF SYSTEMS: See HPI for pertinent positives and pertinent negatives. ALLERGIES: Lidocaine - however, was able to have with recent carpal tunnel surgery MEDICATIONS: Vit D supplement PAST MEDICAL HISTORY: Denies significant past medical or surgical history other than vitamin D deficiency PHYSICAL EXAM: VITALS: Vitals are noted on the nurse's note and reviewed by myself. GENERAL: No acute distress, non-diaphoretic. SKIN: Capillary reflex less than 2 seconds. HEAD: No scalp tenderness. No step-offs felt. EARS: Bilateral external auditory canals clear. Bilateral tympanic membranes pearly ruiz without erythema or effusion. No hemotympanum. No trujillo sign. No mastoid tenderness. EYES: Visual acuity 20/25 in the right and 20/20 in the left with her contacts. Tonometer with an average of 18.5 on the right and 17.3 on the left. Slit-lamp exam without evidence for hyphema, hypopyon, foreign body, or other acute abnormalities. Retinal scanner as reviewed by Dr. Harris of ophthalmology without any acute abnormalities. Pupils equal round and reactive to light and accommodation. Funduscopic exam without obvious acute abnormalities. Conjunctivae without injection, sclerae without icterus. Extraocular movements intact without pain. NOSE: Patent, turbinates without inflammation or discharge. No sinus tenderness. Normal transillumination of the sinuses. No septal hematoma or bleeding. FACE: No facial bone tenderness and no temporal tenderness at this time. Full range of motion of the jaw without tenderness. No facial droop. MOUTH: Mucous membranes moist. Uvula midline. Airway patent. Tongue does not deviate. NECK: Supple without nuchal rigidity. Cervical spine is nontender. Full range of motion of the neck without tenderness and normal strength. HEART: Regular rate and rhythm without murmurs gallops or rubs. LUNGS: Clear to auscultation bilaterally without wheezes, rales or rhonchi. No retractions or accessory muscle use. No chest wall tenderness. ABDOMEN: Positive bowel sounds x 4. Normal tympanic percussion. Soft, nontender, without masses or organomegaly. No guarding or rebound tenderness. MUSCULOSKELETAL: No tenderness of the thoracic or lumbar spine or paraspinal muscles. Strength 5/5 and equal bilaterally in the upper and lower extremities. Peripheral pulses 2+ and equal in the bilateral upper and lower extremities. NEURO: Patient was alert and oriented to person place and time. Normal mental status exam. Normal sensation to light and sharp touch. Negative Romberg and pronator drift. Cerebellar function intact. No focal neurological deficits. DIFFERENTIAL DIAGNOSIS: Differential diagnosis includes CVA, TIA, aneurysm, carotid stenosis, intracranial mass, intracranial bleed, pituitary adenoma, detached retina, amaurosis fugax, Lyme disease, MS, vitamin B12 deficiency, vitamin D deficiency, migraines, ocular migraines, sinusitis, viral syndrome, meningitis, temporal arteritis, dehydration, infection, thyroid disorder, or others. ED COURSE AND MEDICAL DECISION MAKING: MONITOR: Continuous perioperative nurse: Order was placed for continuous perioperative nurse. Patient was placed on the perioperative nurse and continuous pulse ox. Patient was noted to be in normal sinus rhythm at an initial rate of 80 bpm per my interpretation. EKG: EKG was interpreted by myself as normal sinus rhythm at [address] and T wave abnormalities, but no acute ST or T wave changes. MEDICATIONS GIVEN: 1 L normal saline solution bolus. The patient declined any medication for pain while in the emergency department. INTERPRETATION OF LABS: I interpreted the labs with full lab results as below in the lab section of this note. CBC was normal. Coags were normal. CMP was normal. Lipase was normal. ESR was normal at 20, but CRP was elevated at 1.51. High-sensitivity troponin was normal. Vitamin B12 level was normal at 472. Vitamin D level was low at 23, but this is improved from previous. TSH was normal. Serum test was negative. Lyme disease IgG and IgM were negative. Urinalysis without evidence for UTI. COVID, influenza, and RSV were negative. INTERPRETATION OF IMAGING: Imaging studies were interpreted by myself and read by radiology as per the imaging section of this note. CT scans of the head as well as CTA of the head and neck showed no evidence for acute abnormalities. CTA of the chest showed no evidence for PE, pneumonia, or other abnormalities. EXTERNAL RECORDS REVIEWED: I reviewed the patient's office visit from 05/23/2023 as above. CONSULTATIONS: Dr. Harris of ophthalmology. On-call hospitalist. MDM SUMMARY: I examined the patient. An IV lock was placed and labs were drawn. The patient was hydrated with 1 L normal saline solution bolus, but declined any medication for pain while in the emergency department. Laboratory studies as above without acute abnormalities other than a known vitamin D deficiency and a CRP of 1.51. The patient states that she has a strong family history of blood clots as well as strokes and states that she was told that many of the strokes and blood clots "originate from the heart." CT/CTA of the head and neck as well as CTA of the chest without evidence for acute abnormalities. Visual acuity, tonometry, and slit-lamp exam as above without acute abnormalities. I spoke with Dr. Harris of ophthalmology who reviewed the patient's retinal scan and stated it did not show any acute abnormalities. He was concerned for possible repeated TIAs versus new ocular migraines. He did recommend an MRI at some point for further evaluation of her symptoms. Given the patient's family history, an echocardiogram may be of benefit as well. I had a meaningful discussion about this patient with Dr. Davies who agrees with my assessment and the treatment plan. We feel the patient requires admission for further inpatient evaluation of possible TIAs versus stroke and to complete her work-up. I spoke with the on-call hospitalist who agreed to admit the patient for further management. Please refer to their dictation for further details. The patient's care was transferred in stable condition. DIAGNOSIS: Visual disturbances Headache Paresthesias Concern for possible TIAs versus ocular migraine versus others Past Med/Surg History Medical History Diarrhea Goiter Hypocalcemia Hypoxia Lightheadedness Premenstrual syndrome Reflex incontinence Vitamin D insufficiency Social History Smoking Status: Never smoker Hx Alcohol Use: Yes Alcohol type: hard liquor Hx Substance Use: No Preferred Language: Stateless Communication Ability: Effective Counter Caser Required: No Beliefs That Will Affect Care: None marital status: Current Living Situation: Spouse Current Living Situation Comment: Lives with at home current occupational status: employed 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 Verified 05/26/23 14:43 Home Meds Home Medications Medication Instructions Recorded Confirmed acetaminophen 500 mg tablet 1,000 mg PO Q6H PRN Fever Or Pain 05/16/21 05/26/23 (Tylenol Extra Strength) Previous Rx's Medication Instructions Recorded cholecalciferol (vitamin D3) 25 25 mcg PO DAILY 3 months #90 caps 08/27/21 mcg (1,000 unit) capsule Results & Data (ED) Vital Signs Vital Signs - 24 hr 05/26/23 10:44 05/26/23 12:20 05/26/23 12:52 Temperature 36.4 C L Temperature Source Temporal Artery Scan Pulse Rate 80 70 Pulse Rate [Apical] Respiratory Rate 16 Respiratory Effort / Characteristics Non-Labored Respiratory Depth Normal Blood Pressure 146/95 H Blood Pressure [Left Arm] Blood Pressure Mean 112 Blood Pressure Mean [Left Arm] Pulse Oximetry 95 95 Oxygen Delivery Method Room Air Room Air Sepsis Recent Fever Within 48 Hours No Sepsis New/Unexplained Change in Mental Status No Sepsis Action Taken by Nursing No Action Required 05/26/23 12:37 05/26/23 14:00 05/26/23 16:00 Temperature Temperature Source Pulse Rate Pulse Rate [Apical] 68 75 79 Respiratory Rate 18 18 18 Respiratory Effort / Characteristics Respiratory Depth Blood Pressure Blood Pressure [Left Arm] 128/87 130/86 130/86 Blood Pressure Mean Blood Pressure Mean [Left Arm] 100 100 100 Pulse Oximetry 97 96 96 Oxygen Delivery Method Room Air Room Air Room Air Sepsis Recent Fever Within 48 Hours Sepsis New/Unexplained Change in Mental Status Sepsis Action Taken by Nursing Laboratory Data 05/26/23 12:32 05/26/23 12:32 Lab Results 05/26/23 05/26/23 05/26/23 Range/Units 12:32 12:32 12:32 WBC 4.93 (4.8-10.8) K/ul RBC 4.88 (4.20-5.40) M/uL Hgb 15.0 (12.0-16.0) g/dl Hct 44.5 (37.0-47.0) % MCV 91.2 (80.0-100.0) fL MCH 30.7 (25.0-34.0) pg MCHC 33.7 (32.0-36.0) g/dL RDW Std Deviation 39.9 (36.4-46.3) fL RDW Coeff of Yessi 11.9 (11.5-14.5) % Plt Count 227 (130-400) K/uL MPV 10.8 (9.4-12.4) fL Immature Gran % (Auto) 0.2 % Neut % (Auto) 60.7 % Lymph % (Auto) 30.0 % Rogers % (Auto) 7.1 % Eos % (Auto) 1.6 % Baso % (Auto) 0.4 % Neut # (Auto) 2.99 (1.40-6.50) K/uL Lymph # (Auto) 1.48 (1.20-3.40) K/uL Rogers # (Auto) 0.35 (0.11-0.59) K/uL Eos # (Auto) 0.08 (0.00-0.50) K/uL Baso # (Auto) 0.02 (0.00-0.20) K/uL Immature Gran # (Auto) 0.01 (0.01-0.20) K/uL ESR 20 (0-20) mm/hr PT 10.1 (9.0-12.0) Seconds INR 0.9 (0.9-1.1) APTT 30.5 (21.0-31.0) Seconds PTT Ratio 1.1 Sodium (136-145) mmol/L Potassium (3.5-5.1) mmol/L Chloride (98-107) mmol/L Carbon Dioxide (21-32) mmol/L Anion Gap (3-11) BUN (6-23) mg/dl Creatinine (0.6-1.2) mg/dl Est Cr Clr Drug Dosing ml/min Est GFR ( Amer) ml/min Est GFR (Non-Af Amer) ml/min BUN/Creatinine Ratio (10-20) Glucose (70-99(Fasting)) mg/dl Calcium (8.6-10.3) mg/dl Total Bilirubin (0.2-1.0) mg/dl AST (13-39) U/L ALT (7-52) U/L Alkaline Phosphatase (34-104) U/L Troponin I High Sens (0-14) pg/ml C-Reactive Protein (0-0.5) mg/dl Total Protein (6.0-8.3) gm/dl Albumin (3.4-5.0) gm/dl Globulin (2.5-4.0) gm/dl Albumin/Globulin Ratio (0.9-2) Lipase (11-82) U/L Vitamin B12 (180-914) pg/ml 25-OH Vitamin D Total (30-100) ng/ml TSH (0.300-4.500) uIu/ml HCG, Qual (Negative) Urine Color Urine Appearance (Clear) Urine pH (4.5-7.5) Ur Specific [place] (1.000-1.030) Urine Protein (Negative) Urine Glucose (UA) (Negative) Urine Ketones (Negative) Urine Blood (Negative) Urine Nitrite (Negative) Urine Bilirubin (Negative) Urine Urobilinogen (Negative) Ur Leukocyte Esterase (Negative) Urine WBC (Auto) (0-5) /hpf Urine RBC (Auto) (0-4) /hpf U Hyaline Cast (Auto) (0-5) /lpf U Epithel Cells (Auto) (0-5) /lpf Urine Bacteria (Auto) (Negative) Lyme Disease IgG Ab (Negative) Lyme Disease IgM Ab (Negative) SARS-CoV-2 (PCR) (Negative) Influenza Type A (PCR) (Neg) Influenza Type B (PCR) (Neg) RSV (RT-PCR) (Neg) 05/26/23 05/26/23 05/26/23 Range/Units 12:32 12:32 12:32 WBC (4.8-10.8) K/ul RBC (4.20-5.40) M/uL Hgb (12.0-16.0) g/dl Hct (37.0-47.0) % MCV (80.0-100.0) fL MCH (25.0-34.0) pg MCHC (32.0-36.0) g/dL RDW Std Deviation (36.4-46.3) fL RDW Coeff of Yessi (11.5-14.5) % Plt Count (130-400) K/uL MPV (9.4-12.4) fL Immature Gran % (Auto) % Neut % (Auto) % Lymph % (Auto) % Rogers % (Auto) % Eos % (Auto) % Baso % (Auto) % Neut # (Auto) (1.40-6.50) K/uL Lymph # (Auto) (1.20-3.40) K/uL Rogers # (Auto) (0.11-0.59) K/uL Eos # (Auto) (0.00-0.50) K/uL Baso # (Auto) (0.00-0.20) K/uL Immature Gran # (Auto) (0.01-0.20) K/uL ESR (0-20) mm/hr PT (9.0-12.0) Seconds INR (0.9-1.1) APTT (21.0-31.0) Seconds PTT Ratio Sodium 137 (136-145) mmol/L Potassium 4.1 (3.5-5.1) mmol/L Chloride 104 (98-107) mmol/L Carbon Dioxide 25 (21-32) mmol/L Anion Gap 8 (3-11) BUN 17 (6-23) mg/dl Creatinine 0.87 (0.6-1.2) mg/dl Est Cr Clr Drug Dosing 104.1 ml/min Est GFR ( Amer) 91.9 ml/min Est GFR (Non-Af Amer) 79.3 ml/min BUN/Creatinine Ratio 19.5 (10-20) Glucose 85 (70-99(Fasting)) mg/dl Calcium 9.9 (8.6-10.3) mg/dl Total Bilirubin 0.6 (0.2-1.0) mg/dl AST 29 (13-39) U/L ALT 46 (7-52) U/L Alkaline Phosphatase 75 (34-104) U/L Troponin I High Sens 2.4 (0-14) pg/ml C-Reactive Protein 1.51 H (0-0.5) mg/dl Total Protein 7.8 (6.0-8.3) gm/dl Albumin 4.4 (3.4-5.0) gm/dl Globulin 3.4 (2.5-4.0) gm/dl Albumin/Globulin Ratio 1.3 (0.9-2) Lipase 22 (11-82) U/L Vitamin B12 472 (180-914) pg/ml 25-OH Vitamin D Total 23.0 L (30-100) ng/ml TSH 1.098 (0.300-4.500) uIu/ml HCG, Qual (Negative) Urine Color Urine Appearance (Clear) Urine pH (4.5-7.5) Ur Specific [place] (1.000-1.030) Urine Protein (Negative) Urine Glucose (UA) (Negative) Urine Ketones (Negative) Urine Blood (Negative) Urine Nitrite (Negative) Urine Bilirubin (Negative) Urine Urobilinogen (Negative) Ur Leukocyte Esterase (Negative) Urine WBC (Auto) (0-5) /hpf Urine RBC (Auto) (0-4) /hpf U Hyaline Cast (Auto) (0-5) /lpf U Epithel Cells (Auto) (0-5) /lpf Urine Bacteria (Auto) (Negative) Lyme Disease IgG Ab (Negative) Lyme Disease IgM Ab (Negative) SARS-CoV-2 (PCR) (Negative) Influenza Type A (PCR) (Neg) Influenza Type B (PCR) (Neg) RSV (RT-PCR) (Neg) 05/26/23 05/26/23 05/26/23 Range/Units 12:32 13:40 13:40 WBC (4.8-10.8) K/ul RBC (4.20-5.40) M/uL Hgb (12.0-16.0) g/dl Hct (37.0-47.0) % MCV (80.0-100.0) fL MCH (25.0-34.0) pg MCHC (32.0-36.0) g/dL RDW Std Deviation (36.4-46.3) fL RDW Coeff of Yessi (11.5-14.5) % Plt Count (130-400) K/uL MPV (9.4-12.4) fL Immature Gran % (Auto) % Neut % (Auto) % Lymph % (Auto) % Rogers % (Auto) % Eos % (Auto) % Baso % (Auto) % Neut # (Auto) (1.40-6.50) K/uL Lymph # (Auto) (1.20-3.40) K/uL Rogers # (Auto) (0.11-0.59) K/uL Eos # (Auto) (0.00-0.50) K/uL Baso # (Auto) (0.00-0.20) K/uL Immature Gran # (Auto) (0.01-0.20) K/uL ESR (0-20) mm/hr PT (9.0-12.0) Seconds INR (0.9-1.1) APTT (21.0-31.0) Seconds PTT Ratio Sodium (136-145) mmol/L Potassium (3.5-5.1) mmol/L Chloride (98-107) mmol/L Carbon Dioxide (21-32) mmol/L Anion Gap (3-11) BUN (6-23) mg/dl Creatinine (0.6-1.2) mg/dl Est Cr Clr Drug Dosing ml/min Est GFR ( Amer) ml/min Est GFR (Non-Af Amer) ml/min BUN/Creatinine Ratio (10-20) Glucose (70-99(Fasting)) mg/dl Calcium (8.6-10.3) mg/dl Total Bilirubin (0.2-1.0) mg/dl AST (13-39) U/L ALT (7-52) U/L Alkaline Phosphatase (34-104) U/L Troponin I High Sens (0-14) pg/ml C-Reactive Protein (0-0.5) mg/dl Total Protein (6.0-8.3) gm/dl Albumin (3.4-5.0) gm/dl Globulin (2.5-4.0) gm/dl Albumin/Globulin Ratio (0.9-2) Lipase (11-82) U/L Vitamin B12 (180-914) pg/ml 25-OH Vitamin D Total (30-100) ng/ml TSH (0.300-4.500) uIu/ml HCG, Qual Negative (Negative) Urine Color Yellow Urine Appearance Clear (Clear) Urine pH 5.0 (4.5-7.5) Ur Specific [place] 1.018 (1.000-1.030) Urine Protein Negative (Negative) Urine Glucose (UA) Negative (Negative) Urine Ketones Negative (Negative) Urine Blood 1+ H (Negative) Urine Nitrite Negative (Negative) Urine Bilirubin Negative (Negative) Urine Urobilinogen Negative (Negative) Ur Leukocyte Esterase Negative (Negative) Urine WBC (Auto) 1-5 (0-5) /hpf Urine RBC (Auto) 0-4 (0-4) /hpf U Hyaline Cast (Auto) 1-5 (0-5) /lpf U Epithel Cells (Auto) >30 H (0-5) /lpf Urine Bacteria (Auto) Negative (Negative) Lyme Disease IgG Ab Negative (Negative) Lyme Disease IgM Ab Negative (Negative) SARS-CoV-2 (PCR) NEGATIVE (Negative) Influenza Type A (PCR) Negative (Neg) Influenza Type B (PCR) Negative (Neg) RSV (RT-PCR) Negative (Neg) Administered Medications Discontinued Medications Aspirin (Aspirin 81 Mg Chew) 324 mg PO NOW ONE Stop: 05/26/23 16:36 Last Admin: 05/26/23 17:06 Dose: 324 mg Documented By: YEISON Sodium Chloride (Nss) 1,000 mls @ 999 mls/hr IV .Q1H1M STA Stop: 05/26/23 12:57 Last Infusion: 05/26/23 14:04 Dose: 0 mls/hr Documented By: Admin: 05/26/23 12:55 Dose: 999 mls/hr Documented By: OL Ioversol (Optiray 320 500ml) 115 ml IV ONCE ONE Stop: 05/26/23 13:57 Last Admin: 05/26/23 13:54 Dose: 115 ml Documented By: BRKaushik Lorazepam (Lorazepam 0.5 Mg Tab) 0.5 mg PO NOW STA Stop: 05/26/23 18:41 Last Admin: 05/26/23 18:45 Dose: 0.5 mg Documented By: CEK Imaging Data Radiologist's Impression: Chest CTA 05/26/23 11:58 CT ANGIOGRAM OF THE CHEST CLINICAL HISTORY: Atypical chest pain. COMPARISON STUDY: Chest x-ray dated 05/16/2021. TECHNIQUE: Following the IV administration of 115 cc of Optiray 320, CT angiogram of the chest was performed from the upper abdomen to the thoracic inlet utilizing the pulmonary embolus protocol. Images are reviewed in the axial, sagittal, and coronal planes. 3-D MIPS images are created and assessed. IV contrast was administered without complication. A dose lowering technique was utilized adhering to the principles of ALARA. CT DOSE: 1765.86 mGy.cm FINDINGS: Thyroid: Imaged portions of the thyroid gland are normal in size and attenuation. Thoracic aorta: The thoracic aorta is normal in caliber and demonstrates standard 3-vessel arch anatomy. No dissection is seen. Pulmonary vasculature: The pulmonary trunk is normal in caliber. There are no filling defects identified in main, lobar, or segmental pulmonary branches to suggest pulmonary embolus. Heart: The heart is normal in size and without pericardial effusion. Lungs and pleural spaces: There is mild apical scarring. No airspace consolidation or pleural effusion is identified. The trachea and central airways are clear. Mediastinum: There is no mediastinal lymphadenopathy. Bessie: Clear. Axillae: There is no axillary lymphadenopathy. Upper abdomen: There is a small hiatal hernia. Partially visualized upper abdominal viscera is otherwise within normal limits. Skeletal structures: No lytic or blastic bony lesions are seen. IMPRESSION: 1. There is no evidence of pulmonary embolus in the main, lobar, or segmental pulmonary arteries. 2. The lungs are clear. ACT 112: Negative or not required by law. Electronically signed by: Heron Celestin M.D. 05/26/2023 2:[address] 05/26/23 11:59 CT angio head w con, CT head/brain wo con, CT angio neck with con CLINICAL HISTORY: 48 years-old Female with headache, dizziness, vision changes, paresthesias. Acute headache with dizziness COMPARISON STUDY: Head CT 04/01/2008 TECHNIQUE: Unenhanced axial CT scan of the brain is performed. Subsequently, following the IV administration of 115 cc of Optiray, CT angiogram of the head and neck was performed from the aortic arch to the skull apex. Images are reviewed in the axial, sagittal, and coronal planes. 3-D MIPS images are created and assessed. IV contrast was administered without complication. All measurements were obtained according to NASCET criteria. A dose lowering technique was utilized adhering to the principles of ALARA. FINDINGS: CT BRAIN: There is no acute intracranial hemorrhage, midline shift, hydrocephalus, intracranial mass, territorial ischemia or abnormal extra-axial collections. No abnormal intra-axial or extra-axial enhancement. Mastoid air cells and middle ear cavities are clear. No calvarial fracture. Paranasal sinuses are clear. CT ANGIOGRAM OF THE HEAD AND NECK: Three-vessel morphology of the thoracic aortic arch. The bilateral anterior and middle cerebral arteries are also patent. The vertebrobasilar system and posterior cerebral arteries are widely patent. There is no aneurysm, high-grade stenosis, or proximal branch occlusion identified. Dural sinuses appear patent. Mild mucosal thickening of the paranasal sinuses. No pneumothorax. 5 mm solid nodule within the right lung apex, image 68. No acute cervical spine fracture identified. IMPRESSION: 1. No acute intracranial abnormality. 2. Unremarkable CTA of the head and neck. 3. Mild mucosal thickening of the paranasal sinuses. ACT 112: Negative or not required by law. The above report was generated using voice recognition software. It may contain grammatical, syntax or spelling errors. Electronically signed by: Sav Bowden M.D. 05/26/2023 2:17 PM Head CTA 05/26/23 11:59 CT angio head w con, CT head/brain wo con, CT angio neck with con CLINICAL HISTORY: 48 years-old Female with headache, dizziness, vision changes, paresthesias. Acute headache with dizziness COMPARISON STUDY: Head CT 04/01/2008 TECHNIQUE: Unenhanced axial CT scan of the brain is performed. Subsequently, following the IV administration of 115 cc of Optiray, CT angiogram of the head and neck was performed from the aortic arch to the skull apex. Images are reviewed in the axial, sagittal, and coronal planes. 3-D MIPS images are created and assessed. IV contrast was administered without complication. All measurements were obtained according to NASCET criteria. A dose lowering technique was utilized adhering to the principles of ALARA. FINDINGS: CT BRAIN: There is no acute intracranial hemorrhage, midline shift, hydrocephalus, intracranial mass, territorial ischemia or abnormal extra-axial collections. No abnormal intra-axial or extra-axial enhancement. Mastoid air cells and middle ear cavities are clear. No calvarial fracture. Paranasal sinuses are clear. CT ANGIOGRAM OF THE HEAD AND NECK: Three-vessel morphology of the thoracic aortic arch. The bilateral anterior and middle cerebral arteries are also patent. The vertebrobasilar system and posterior cerebral arteries are widely patent. There is no aneurysm, high-grade stenosis, or proximal branch occlusion identified. Dural sinuses appear patent. Mild mucosal thickening of the paranasal sinuses. No pneumothorax. 5 mm solid nodule within the right lung apex, image 68. No acute cervical spine fracture identified. IMPRESSION: 1. No acute intracranial abnormality. 2. Unremarkable CTA of the head and neck. 3. Mild mucosal thickening of the paranasal sinuses. ACT 112: Negative or not required by law. The above report was generated using voice recognition software. It may contain grammatical, syntax or spelling errors. Electronically signed by: Sav Bowden M.D. 05/26/2023 2:17 PM Neck CTA 05/26/23 11:59 CT angio head w con, CT head/brain wo con, CT angio neck with con CLINICAL HISTORY: 48 years-old Female with headache, dizziness, vision changes, paresthesias. Acute headache with dizziness COMPARISON STUDY: Head CT 04/01/2008 TECHNIQUE: Unenhanced axial CT scan of the brain is performed. Subsequently, following the IV administration of 115 cc of Optiray, CT angiogram of the head and neck was performed from the aortic arch to the skull apex. Images are reviewed in the axial, sagittal, and coronal planes. 3-D MIPS images are created and assessed. IV contrast was administered without complication. All measu rements were obtained according to NASCET criteria. A dose lowering technique was utilized adhering to the principles of ALARA. FINDINGS: CT BRAIN: There is no acute intracranial hemorrhage, midline shift, hydrocephalus, intracranial mass, territorial ischemia or abnormal extra-axial collections. No abnormal intra-axial or extra-axial enhancement. Mastoid air cells and middle ear cavities are clear. No calvarial fracture. Paranasal sinuses are clear. CT ANGIOGRAM OF THE HEAD AND NECK: Three-vessel morphology of the thoracic aortic arch. The bilateral anterior and middle cerebral arteries are also patent. The vertebrobasilar system and posterior cerebral arteries are widely patent. There is no aneurysm, high-grade stenosis, or proximal branch occlusion identified. Dural sinuses appear patent. Mild mucosal thickening of the paranasal sinuses. No pneumothorax. 5 mm solid nodule within the right lung apex, image 68. No acute cervical spine fracture identified. IMPRESSION: 1. No acute intracranial abnormality. 2. Unremarkable CTA of the head and neck. 3. Mild mucosal thickening of the paranasal sinuses. ACT 112: Negative or not required by law. The above report was generated using voice recognition software. It may contain grammatical, syntax or spelling errors. Electronically signed by: Sav Bowden M.D. 05/26/2023 2:17 PM Discharge Plan Visit Data Chief Complaint: Eye Problems Stated Complaint: DOC REF,VISUAL DISTURBANCE,FACE NUMB,TINGLING HAND ED Provider: Yamini Davies ED Midlevel Provider: Dana Velez Discharge Problem: Visual disturbance, Headache, Paresthesia Patient Disposition: Admitted As Inpatient Condition: Good Discharge Instructions Interventions: ED Discharge Assessment Last Done: 05/26/23 19:47 Headache Qualifiers: Headache type: unspecified Headache chronicity pattern: acute headache Intractability: not intractable Qualified Code(s): R51.9 - Headache, unspecified
[2023-05-26] MEDS ORDERED: SODIUM CHLORIDE 0.9% 1,000 ML IV STA (11:57)
[2023-05-26 12:58] LABS: Basophils # (auto) 0.02 K/uL (0.00-0.20); Basophils % (auto) 0.4 %; Eosinophils # (auto) 0.08 K/uL (0.00-0.50); Eosinophils % (auto) 1.6 %; Hematocrit (blood only) 44.5 % (37.0-47.0); Immature Granulocytes # (auto) 0.01 K/uL (0.01-0.20); Immature Granulocytes % (auto) 0.2 %; Lymphocytes # (auto) 1.48 K/uL (1.20-3.40); Mean Corpuscular Hemoglobin 30.7 pg (25.0-34.0); Mean Corpuscular Hgb Conc 33.7 g/dL (32.0-36.0); Mean Corpuscular Volume 91.2 fL (80.0-100.0); Mean Platelet Volume 10.8 fL (9.4-12.4); Monocytes # (auto) 0.35 K/uL (0.11-0.59); Monocytes % (auto) 7.1 %; Neutrophils # (auto) 2.99 K/uL (1.40-6.50); Neutrophils % (auto) 60.7 %; Platelet Count 227 K/uL (130-400); RDW Coefficient of Variation 11.9 % (11.5-14.5); RDW Standard Deviation 39.9 fL (36.4-46.3); Red Blood Count 4.88 M/uL (4.20-5.40); White Blood Count 4.93 K/ul (4.8-10.8)
[2023-05-26 13:10] LABS: Pregnancy Test, Serum Negative (Negative)
[2023-05-26 13:18] LABS: Albumin Globulin Ratio 1.3 (0.9-2); Albumin Level 4.4 gm/dl (3.4-5.0); BUN Creatinine Ratio 19.5 (10-20); Bilirubin,Total 0.6 mg/dl (0.2-1.0); C Reactive Protein 1.51 mg/dl (0-0.5); Calcium 9.9 mg/dl (8.6-10.3); Creatinine Clr Calc Pharmacy 104.1 ml/min; Est GFR (African American) 91.9 ml/min; Est GFR (Non-African American) 79.3 ml/min; Globulin 3.4 gm/dl (2.5-4.0); Potassium 4.1 mmol/L (3.5-5.1); Total Protein 7.8 gm/dl (6.0-8.3)
[2023-05-26 13:20] LABS: Troponin I High Sensitivity 2.4 pg/ml (0-14)
[2023-05-26 13:25] LABS: INR 0.9 (0.9-1.1); Partial Thromboplastin Ratio 1.1; Partial Thromboplastin Time 30.5 Seconds (21.0-31.0); Prothrombin Time 10.1 Seconds (9.0-12.0)
[2023-05-26 13:28] LABS: Thyroid Stimulating Hormone 1.098 uIu/ml (0.300-4.500)
[2023-05-26 13:36] LABS: Lyme Ab IgG w/WB Rflx Negative (Negative); Lyme Ab IgM w/WB Rflx Negative (Negative)
[2023-05-26] MEDS ORDERED: OPTIRAY 320 500ml IV ONE (13:56)
[2023-05-26 14:00] LABS: Appearance Urine Clear (Clear); Bacteria Urine Automated Negative (Negative); Bilirubin Urine Negative (Negative); Blood Urine 1+ (Negative); Color Urine Yellow; Epithelial Cell Urine Auto >30 /lpf (0-5); Glucose Urine UA Negative (Negative); Ketones Urine Negative (Negative); Leukocyte Esterase Urine Negative (Negative); Nitrite Urine Negative (Negative); Protein Urine Negative (Negative); RBC Urine Automated 0-4 /hpf (0-4); Specific Gravity Urine 1.018 (1.000-1.030); Urobilinogen Urine Negative (Negative)
--- NOTE | 2023-05-26 14:08 | CT Scan Report ---
CT ANGIOGRAM OF THE CHEST CLINICAL HISTORY: Atypical chest pain. COMPARISON STUDY: Chest x-ray dated 05/16/2021. TECHNIQUE: Following the IV administration of 115 cc of Optiray 320, CT angiogram of the chest was pe rformed from the upper abdomen to the thoracic inlet utilizing the pulmonary embolus protocol. Images are reviewed in the axial, sagittal, and coronal planes. 3-D MIPS images are created and assessed. I V contrast was administered without complication. A dose lowering technique was utilized adhering to the principles of ALARA. CT DOSE: 1765.86 mGy.cm FINDINGS: Thyroid: Imaged portions of the thyroid gland are normal in size and attenuation. Thoracic aorta: The thoracic aorta is normal in caliber and demonstrates standard 3-vessel arch anato my. No dissection is seen. Pulmonary vasculature: The pulmonary trunk is normal in caliber. There are no filling defects identif ied in main, lobar, or segmental pulmonary branches to suggest pulmonary embolus. Heart: The heart is normal in size and without pericardial effusion. Lungs and pleural spaces: There is mild apical scarring. No airspace consolidation or pleural effusio n is identified. The trachea and central airways are clear. Mediastinum: There is no mediastinal lymphadenopathy. Bessie: Clear. Axillae: There is no axillary lymphadenopathy. Upper abdomen: There is a small hiatal hernia. Partially visualized upper abdominal viscera is otherw ise within normal limits. Skeletal structures: No lytic or blastic bony lesions are seen. IMPRESSION: 1. There is no evidence of pulmonary embolus in the main, lobar, or segmental pulmonary arteries. 2. The lungs are clear. ACT 112: Negative or not required by law. Electronically signed by: Heron Celestin M.D. 05/26/2023 2:07 PM
--- NOTE | 2023-05-26 14:18 | CT Scan Report ---
CT angio head w con, CT head/brain wo con, CT angio neck with con CLINICAL HISTORY: 48 years-old Female with headache, dizziness, vision changes, paresthesias. Acut e headache with dizziness COMPARISON STUDY: Head CT 04/01/2008 TECHNIQUE: Unenhanced axial CT scan of the brain is performed. Subsequently, following the IV adminis tration of 115 cc of Optiray, CT angiogram of the head and neck was performed from the aortic arch to the skull apex. Images are reviewed in the axial, sagittal, and coronal planes. 3-D MIPS images are created and assessed. IV contrast was administered without complication. All measurements were obtain ed according to NASCET criteria. A dose lowering technique was utilized adhering to the principles of ALARA. FINDINGS: CT BRAIN: There is no acute intracranial hemorrhage, midline shift, hydrocephalus, intracranial mass, territori al ischemia or abnormal extra-axial collections. No abnormal intra-axial or extra-axial enhancement. Mastoid air cells and middle ear cavities are clear. No calvarial fracture. Paranasal sinuses are cl ear. CT ANGIOGRAM OF THE HEAD AND NECK: Three-vessel morphology of the thoracic aortic arch. The bilateral anterior and middle cerebral arter ies are also patent. The vertebrobasilar system and posterior cerebral arteries are widely patent. Th ere is no aneurysm, high-grade stenosis, or proximal branch occlusion identified. Dural sinuses appea r patent. Mild mucosal thickening of the paranasal sinuses. No pneumothorax. 5 mm solid nodule within the right lung apex, image 68. No acute cervical spine fracture identified. IMPRESSION: 1. No acute intracranial abnormality. 2. Unremarkable CTA of the head and neck. 3. Mild mucosal thickening of the paranasal sinuses. ACT 112: Negative or not required by law. The above report was generated using voice recognition software. It may contain grammatical, syntax o r spelling errors. Electronically signed by: Sav Bowden M.D. 05/26/2023 2:17 PM
[2023-05-26 14:32] LABS: Influenza A virus by PCR Negative (Neg); Influenza B virus by PCR Negative (Neg); RSV by PCR Negative (Neg); SARS CoV2 RNA(COVID-19) Ceph NEGATIVE (Negative)
--- NOTE | 2023-05-26 16:10 | History & Physical Report ---
Date of Service May 26, 2023 Assessment & Plan (1) Visual disturbance: Plan: Clinically, intermittent visual disturbances; 5 episodes since Tuesday 05/22 Patient describes them as kaleidoscope's; also endorses left temporal headache No history of CVA/TIAs; however, extensive family history of blood clots/CVAs Chest CTA showed no evidence of PE Head CT: NAF Head/neck CTA: NAF Brain MRI: NAF CRP elevated at 1.51 Lyme negative COVID, flu, RSV negative Aspirin 324 mg p.o. given in the ED; patient denies allergy to aspirin Neuro-checks q4h Continuous telemetry monitoring Echo plus bubble study ordered to look for ASD/PFO A.m. CBC, BMP, lipid panel, A1c (2) Headache: Plan: Clinically, suspect migraines are the etiology of her recent visual disturbances given history No headaches at present, but history of bilateral headaches that resolved with ibuprofen (3) Vitamin D deficiency: Plan: Vitamin D low at 23.0 Continue vitamin D supplements (4) Family history of blood clots: Plan Disposition: Admit to [facility] telemetry Full code Regular diet VTE PPx: Lovenox, SCDs History of Present Illness Chief Complaint: Visual disturbances and Headache x 5 days Primary Care Provider: Delisa Hernández DO Whit is a 48-year-old female with PMH of vitamin D deficiency, TIMMY, and migraines. She presents for intermittent visual disturbances, left temporal headache, and left hand numbness since Tuesday. She describes her visual disturbances as "kaleidoscopes", with colors; denies history of scotomas before her migraines. She has had a total of 5 episodes of visual disturbances, with the last one being this morning; lasted 10 minutes, she did not take any medication for this. Patient has never experienced visual changes like this before. She denies falling, fainting, or recent head trauma. Patient wears contacts, glasses; last eye doctor appointment in September. She has a history of intermittent headaches, but reports that those headaches were bilateral, worse this one is unilateral, around the left confucianist, and does not alleviate with laying down/napping. Normally, Advil alleviates her symptoms. She also reports 1 episode of left hand numbness on Wednesday 05/23; although, she notes that this has been intermittent since carpal tunnel surgery 3 years ago. Vital stable on arrival. ED course: Aspirin 324 mg p.o. ROS: Patient denies fever, dizziness, CP, SOB, abdominal pain, N/V/D, or leg pain or swelling. Patient endorses mild dry cough, mild SOLANO at the left confucianist. No PMHx of CVA, MT, DVT/PE, or blood clots FMHx of blood clots, strokes Please see Dr. Bolaños's attestation for any changes to treatment plan. Allergies Allergy/AdvReac Type Severity Reaction Status Date / Time lidocaine Allergy . Verified 05/26/23 14:43 Home Medications Medication Instructions Recorded Confirmed Type acetaminophen 500 mg tablet 1,000 mg PO Q6H PRN Fever Or Pain 05/16/21 05/26/23 History (Tylenol Extra Strength) cholecalciferol (vitamin D3) 25 25 mcg PO DAILY 3 months #90 caps 08/27/21 05/26/23 Rx mcg (1,000 unit) capsule Past Med/Surg History Medical History Diarrhea Goiter Hypocalcemia Hypoxia Lightheadedness Premenstrual syndrome Reflex incontinence Vitamin D insufficiency Social History Smoking Status: Never smoker Second Hand Exposure: No; Do You Dip or Chew Tobacco: No; Hx Alcohol Use: Yes Alcohol type: hard liquor Hx Substance Use: No Preferred Language: Sami Communication Ability: Effective Mail Carrier Required: No Beliefs That Will Affect Care: None marital status: Current Living Situation: Spouse Current Living Situation Comment: Lives with at home current occupational status: employed 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 How many Children do You have: 2 Feels Safe at Home: Yes Diet: regular caffeine: Yes Dental Care, Regularly: No Assistive Devices: Contacts and Glasses Review of Systems Review of Systems: See HPI above Physical Exam Physical Exam: General: patient appears in no acute distress; appears stated age; well- nourished; cooperative HEENT: normocephalic, atraumatic; no scleral icterus; no pain to palpation of the temples; PERRLA w/ EOMs intact; moist mucus membrane; trachea midline; vision and hearing grossly intact Skin: warm, dry without signs of tenting; no cyanosis; no rashes or lesions noted Cardiac: RRR; no new murmurs noted Pulm: no acute respiratory distress; symmetrical chest expansion; clear breath sounds across all lung baez without adventitious sounds Abdominal: Soft, nontender to palpation; BS present; no ascites; no distention MSK: no tics or fasciculations; no edema noted in the LEs b/l; pulses intact and symmetrical at radial, DP, and PT Neuro: A&Ox3; fluent speech no tremors; no focal defects; sensation grossly intact assessed at the face, UEs, LEs; +5/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; full active ROM of UE/LEs; patient demonstrates ability to wiggle toes Results & Data Results & Data Vital Signs (Past 12 Hours) Vital Signs Temp Pulse Pulse Resp BP BP Pulse Ox 05/26/23 14:00 75 18 130/86 96 05/26/23 12:37 68 18 128/87 97 05/26/23 12:52 70 05/26/23 12:20 95 05/26/23 10:44 36.4 C L 80 16 146/95 H 95 O2 Del Method 05/26/23 14:00 Room Air 05/26/23 12:37 Room Air 05/26/23 12:52 05/26/23 12:20 Room Air 05/26/23 10:44 Room Air Laboratory Results Abnormal lab results 05/26/23 05/26/23 05/26/23 Range/Units 12:32 12:32 13:40 C-Reactive Protein 1.51 H (0-0.5) mg/dl 25-OH Vitamin D Total 23.0 L (30-100) ng/ml Urine Blood 1+ H (Negative) U Epithel Cells (Auto) >30 H (0-5) /lpf Diagnostic Findings Chest CTA 05/26/23 11:58 CT ANGIOGRAM OF THE CHEST CLINICAL HISTORY: Atypical chest pain. COMPARISON STUDY: Chest x-ray dated 05/16/2021. TECHNIQUE: Following the IV administration of 115 cc of Optiray 320, CT angiogram of the chest was performed from the upper abdomen to the thoracic inlet utilizing the pulmonary embolus protocol. Images are reviewed in the axial, sagittal, and coronal planes. 3-D MIPS images are created and assessed. IV contrast was administered without complication. A dose lowering technique was utilized adhering to the principles of ALARA. CT DOSE: 1765.86 mGy.cm FINDINGS: Thyroid: Imaged portions of the thyroid gland are normal in size and attenuation. Thoracic aorta: The thoracic aorta is normal in caliber and demonstrates standard 3-vessel arch anatomy. No dissection is seen. Pulmonary vasculature: The pulmonary trunk is normal in caliber. There are no filling defects identified in main, lobar, or segmental pulmonary branches to suggest pulmonary embolus. Heart: The heart is normal in size and without pericardial effusion. Lungs and pleural spaces: There is mild apical scarring. No airspace consolidation or pleural effusion is identified. The trachea and central airways are clear. Mediastinum: There is no mediastinal lymphadenopathy. Besise: Clear. Axillae: There is no axillary lymphadenopathy. Upper abdomen: There is a small hiatal hernia. Partially visualized upper abdominal viscera is otherwise within normal limits. Skeletal structures: No lytic or blastic bony lesions are seen. IMPRESSION: 1. There is no evidence of pulmonary embolus in the main, lobar, or segmental pulmonary arteries. 2. The lungs are clear. ACT 112: Negative or not required by law. Electronically signed by: Heron Celestin M.D. 05/26/2023 2:[address] 05/26/23 11:59 CT angio head w con, CT head/brain wo con, CT angio neck with con CLINICAL HISTORY: 48 years-old Female with headache, dizziness, vision changes, paresthesias. Acute headache with dizziness COMPARISON STUDY: Head CT 04/01/2008 TECHNIQUE: Unenhanced axial CT scan of the brain is performed. Subsequently, following the IV administration of 115 cc of Optiray, CT angiogram of the head and neck was performed from the aortic arch to the skull apex. Images are reviewed in the axial, sagittal, and coronal planes. 3-D MIPS images are created and assessed. IV contrast was administered without complication. All measurements were obtained according to NASCET criteria. A dose lowering technique was utilized adhering to the principles of ALARA. FINDINGS: CT BRAIN: There is no acute intracranial hemorrhage, midline shift, hydrocephalus, intracranial mass, territorial ischemia or abnormal extra-axial collections. No abnormal intra-axial or extra-axial enhancement. Mastoid air cells and middle ear cavities are clear. No calvarial fracture. Paranasal sinuses are clear. CT ANGIOGRAM OF THE HEAD AND NECK: Three-vessel morphology of the thoracic aortic arch. The bilateral anterior and middle cerebral arteries are also patent. The vertebrobasilar system and p osterior cerebral arteries are widely patent. There is no aneurysm, high-grade stenosis, or proximal branch occlusion identified. Dural sinuses appear patent. Mild mucosal thickening of the paranasal sinuses. No pneumothorax. 5 mm solid nodule within the right lung apex, image 68. No acute cervical spine fracture identified. IMPRESSION: 1. No acute intracranial abnormality. 2. Unremarkable CTA of the head and neck. 3. Mild mucosal thickening of the paranasal sinuses. ACT 112: Negative or not required by law. The above report was generated using voice recognition software. It may contain grammatical, syntax or spelling errors. Electronically signed by: Sav Bowden M.D. 05/26/2023 2:17 PM Head CTA 05/26/23 11:59 CT angio head w con, CT head/brain wo con, CT angio neck with con CLINICAL HISTORY: 48 years-old Female with headache, dizziness, vision changes, paresthesias. Acute headache with dizziness COMPARISON STUDY: Head CT 04/01/2008 TECHNIQUE: Unenhanced axial CT scan of the brain is performed. Subsequently, following the IV administration of 115 cc of Optiray, CT angiogram of the head and neck was performed from the aortic arch to the skull apex. Images are reviewed in the axial, sagittal, and coronal planes. 3-D MIPS images are created and assessed. IV contrast was administered without complication. All measure ments were obtained according to NASCET criteria. A dose lowering technique was utilized adhering to the principles of ALARA. FINDINGS: CT BRAIN: There is no acute intracranial hemorrhage, midline shift, hydrocephalus, intracranial mass, territorial ischemia or abnormal extra-axial collections. No abnormal intra-axial or extra-axial enhancement. Mastoid air cells and middle ear cavities are clear. No calvarial fracture. Paranasal sinuses are clear. CT ANGIOGRAM OF THE HEAD AND NECK: Three-vessel morphology of the thoracic aortic arch. The bilateral anterior and middle cerebral arteries are also patent. The vertebrobasilar system and posterior cerebral arteries are widely patent. There is no aneurysm, high-grade stenosis, or proximal branch occlusion identified. Dural sinuses appear patent. Mild mucosal thickening of the paranasal sinuses. No pneumothorax. 5 mm solid nodule within the right lung apex, image 68. No acute cervical spine fracture identified. IMPRESSION: 1. No acute intracranial abnormality. 2. Unremarkable CTA of the head and neck. 3. Mild mucosal thickening of the paranasal sinuses. ACT 112: Negative or not required by law. The above report was generated using voice recognition software. It may contain grammatical, syntax or spelling errors. Electronically signed by: Sav Bowden M.D. 05/26/2023 2:17 PM Neck CTA 05/26/23 11:59 CT angio head w con, CT head/brain wo con, CT angio neck with con CLINICAL HISTORY: 48 years-old Female with headache, dizziness, vision changes, paresthesias. Acute headache with dizziness COMPARISON STUDY: Head CT 04/01/2008 TECHNIQUE: Unenhanced axial CT scan of the brain is performed. Subsequently, following the IV administration of 115 cc of Optiray, CT angiogram of the head and neck was performed from the aortic arch to the skull apex. Images are reviewed in the axial, sagittal, and coronal planes. 3-D MIPS images are created and assessed. IV contrast was administered without complication. All measurements were obtained according to NASCET criteria. A dose lowering technique was utilized adhering to the principles of ALARA. FINDINGS: CT BRAIN: There is no acute intracranial hemorrhage, midline shift, hydrocephalus, intracranial mass, territorial ischemia or abnormal extra-axial collections. No abnormal intra-axial or extra-axial enhancement. Mastoid air cells and middle ear cavities are clear. No calvarial fracture. Paranasal sinuses are clear. CT ANGIOGRAM OF THE HEAD AND NECK: Three-vessel morphology of the thoracic aortic arch. The bilateral anterior and middle cerebral arteries are also patent. The vertebrobasilar system and posterior cerebral arteries are widely patent. There is no aneurysm, high-grade stenosis, or proximal branch occlusion identified. Dural sinuses appear patent. Mild mucosal thickening of the paranasal sinuses. No pneumothorax. 5 mm solid nodule within the right lung apex, image 68. No acute cervical spine fracture identified. IMPRESSION: 1. No acute intracranial abnormality. 2. Unremarkable CTA of the head and neck. 3. Mild mucosal thickening of the paranasal sinuses. ACT 112: Negative or not required by law. The above report was generated using voice recognition software. It may contain grammatical, syntax or spelling errors. Electronically signed by: Sav Bowden M.D. 05/26/2023 2:17 PM Brain MRI 05/26/23 16:32 MRI OF THE BRAIN WITHOUT IV CONTRAST CLINICAL HISTORY: Headache. Stroke like symptoms. COMPARISON STUDY: CT of the brain dated 05/26/2023. MRI of the brain dated 05/10/2008 TECHNIQUE: MRI of the brain was performed utilizing various T1 and T2-weighted sequences in the axial, sagittal, and coronal planes. IV contrast was not administered for this examination. FINDINGS: Brain parenchyma: The brain parenchyma is normal in appearance. There is no hemorrhage or mass effect. There is no restricted diffusion to suggest acute ischemia. Wolf-white matter differentiation is preserved. No extra-axial fluid collection is seen. The cerebellar tonsils are normal in configuration. Ventricles, sulci, and cisterns: Normal in configuration. Pituitary and sella: Unremarkable. Intracranial vasculature: Normal flow voids are maintained at the skull base. Orbits: The bony orbits are grossly intact. Orbital contents are normal in appearance. Sinuses and mastoids: There is mild/moderate mucosal thickening within the maxillary, frontal, ethmoid, and sphenoid sinuses. The mastoid air cell are clear. Calvarium: Unremarkable. Cervical cord: Partially visualized cervical spinal cord is normal in morphology and signal intensity. IMPRESSION: No acute intracranial abnormality. ACT 112: Negative or not required by law. Electronically signed by: Heron Celestin M.D. 05/26/2023 7:24 PM Code Status & VTE Plan Code Status Full code VTE Prophylaxis Plan VTE Prophylaxis will be ordered: Yes Supervising Physician Co-Signing Physician Notes Attending addendum: I have physically seen this patient, have supervised the GARY's activities, and agree with the H&P unless as otherwise noted. Assessment and Plan: TIA versus complicated migraine- Symptoms of vision change, facial numbness and hand tingling all improving CT head negative, CTA head neck negative CTA chest negative for PE We will admit for TIA protocol, more however most likely symptoms as complicated migraine Lyme test negative COVID, flu, RSV all negative Order complete echocardiogram Stroke without tPA order set Order MRI brain, may need EEG PG Care Time/CCT Total # of Minutes Spent Total Time Spent with Patient: Total time spent is greater than 50% in coordination of care (as documented) at patient's floor/unit and/or counseling patient: Coding [place] [address] INT INP/OBS CARE 2/55MIN Patient Type Established Medical Decision Making Moderate Complexity Diagnoses Visual disturbance H53.9 Headache R51.9 Headache chronicity pattern: acute headache Headache type: unspecified Intractability: not intractable Vitamin D deficiency E55.9 Family history of blood clots Z82.49 (2) Headache Headache chronicity pattern: acute headache Headache type: unspecified Intractability: not intractable Qualified Code(s): R51.9 - Headache, unspecified
[2023-05-26] MEDS ORDERED: PHARMACIST DISCHARGE MED REC CONSULT PRN (16:30)
[2023-05-26] MEDS ORDERED: ASPIRIN 81 MG CHEW PO ONE (16:35)
[2023-05-26] MEDS ORDERED: LORazepam 0.5 MG TAB PO STA (18:40)
--- NOTE | 2023-05-26 19:26 | Magnetic Resonance Report ---
MRI OF THE BRAIN WITHOUT IV CONTRAST CLINICAL HISTORY: Headache. Stroke like symptoms. COMPARISON STUDY: CT of the brain dated 05/26/2023. MRI of the brain dated 05/10/2008 TECHNIQUE: MRI of the brain was performed utilizing various T1 and T2-weighted sequences in the axial , sagittal, and coronal planes. IV contrast was not administered for this examination. FINDINGS: Brain parenchyma: The brain parenchyma is normal in appearance. There is no hemorrhage or mass effect . There is no restricted diffusion to suggest acute ischemia. Wolf-white matter differentiation is pr eserved. No extra-axial fluid collection is seen. The cerebellar tonsils are normal in configuration. Ventricles, sulci, and cisterns: Normal in configuration. Pituitary and sella: Unremarkable. Intracranial vasculature: Normal flow voids are maintained at the skull base. Orbits: The bony orbits are grossly intact. Orbital contents are normal in appearance. Sinuses and mastoids: There is mild/moderate mucosal thickening within the maxillary, frontal, ethmoi d, and sphenoid sinuses. The mastoid air cell are clear. Calvarium: Unremarkable. Cervical cord: Partially visualized cervical spinal cord is normal in morphology and signal intensity . IMPRESSION: No acute intracranial abnormality. ACT 112: Negative or not required by law. Electronically signed by: Heron Celestin M.D. 05/26/2023 7:24 PM
[2023-05-26] MEDS ORDERED: ACETAMINOPHEN 325 MG TAB PO PRN (19:59)
[2023-05-26] MEDS ORDERED: ENOXAPARIN INJ 40 MG/0.4 ML SYR SQ SCH (20:00)
[2023-05-27 06:51] LABS: Basophils # (auto) 0.02 K/uL (0.00-0.20); Basophils % (auto) 0.4 %; Eosinophils # (auto) 0.12 K/uL (0.00-0.50); Eosinophils % (auto) 2.4 %; Hematocrit (blood only) 40.1 % (37.0-47.0); Hemoglobin 13.4 g/dl (12.0-16.0); Immature Granulocytes # (auto) 0.01 K/uL (0.01-0.20); Immature Granulocytes % (auto) 0.2 %; Lymphocytes # (auto) 1.79 K/uL (1.20-3.40); Lymphocytes % (auto) 36.1 %; Mean Corpuscular Hemoglobin 30.4 pg (25.0-34.0); Mean Corpuscular Hgb Conc 33.4 g/dL (32.0-36.0); Mean Corpuscular Volume 90.9 fL (80.0-100.0); Mean Platelet Volume 10.5 fL (9.4-12.4); Monocytes % (auto) 8.1 %; Neutrophils # (auto) 2.62 K/uL (1.40-6.50); Neutrophils % (auto) 52.8 %; Platelet Count 230 K/uL (130-400); RDW Coefficient of Variation 11.9 % (11.5-14.5); RDW Standard Deviation 40.2 fL (36.4-46.3); Red Blood Count 4.41 M/uL (4.20-5.40); White Blood Count 4.96 K/ul (4.8-10.8)
[2023-05-27 07:09] LABS: Estimated Average Glucose 108 mg/dl; Hemoglobin A1C 5.4 % (4.5-5.6)
[2023-05-27 07:24] LABS: BUN Creatinine Ratio 17.3 (10-20); Calcium 8.8 mg/dl (8.6-10.3); Creatinine Clr Calc Pharmacy 109.9 ml/min; Est GFR (African American) 100.2 ml/min; Est GFR (Non-African American) 86.5 ml/min; Potassium 4.1 mmol/L (3.5-5.1)
[2023-05-27] MEDS ORDERED: CHOLECALCIFEROL 1,000 UNITS 25 MCG TAB PO SCH (09:00)
--- NOTE | 2023-05-27 10:57 | XCELERA ---
[id number] \\[id number]
--- NOTE | 2023-05-27 11:49 | Billing Data ---
Date of Service May 27, 2023 Coding Level of Care Code 05725 INT INP/OBS CARE
[2023-05-27] MEDS ORDERED: STROKE PATIENT DISCHARGE STA (11:51)
--- NOTE | 2023-05-27 23:40 | Discharge Summary ---
Date of Service May 27, 2023 Admission HPI Per Admitting Provider Whit is a 48-year-old female with PMH of vitamin D deficiency, TIMMY, and migraines. She presents for intermittent visual disturbances, left temporal headache, and left hand numbness since Tuesday. She describes her visual disturbances as "kaleidoscopes", with colors; denies history of scotomas before her migraines. She has had a total of 5 episodes of visual disturbances, with the last one being this morning; lasted 10 minutes, she did not take any medication for this. Patient has never experienced visual changes like this before. She denies falling, fainting, or recent head trauma. Patient wears contacts, glasses; last eye doctor appointment in September. She has a history of intermittent headaches, but reports that those headaches were bilateral, worse this one is unilateral, around the left baptist, and does not alleviate with laying down/napping. Normally, Advil alleviates her symptoms. She also reports 1 episode of left hand numbness on Wednesday 05/23; although, she notes that this has been intermittent since carpal tunnel surgery 3 years ago. Vital stable on arrival. ED course: Aspirin 324 mg p.o. ROS: Patient denies fever, dizziness, CP, SOB, abdominal pain, N/V/D, or leg pain or swelling. Patient endorses mild dry cough, mild SOLANO at the left baptist. No PMHx of CVA, IA, DVT/PE, or blood clots FMHx of blood clots, strokes Please see Dr. Bolaños's attestation for any changes to treatment plan. Discharge Data Allergies Allergy/AdvReac Type Severity Reaction Status Date / Time lidocaine Allergy . Verified 05/26/23 14:43 Consultations 05/26/23 16:03 ED Decision to Admit Stat Ordered Studies 05/26/23 11:58 CT angio chest PE protocol Stat 05/26/23 11:59 CT head/brain wo con Stat CTA head w con [CT angio head w con] Stat CTA neck with con [CT angio neck with con] Stat 05/26/23 16:32 MR brain wo con Urgent Discharge Plan Discharge Items Patient Disposition: Home - Self-Care Reason For Visit: VISUAL DISTURBANCES, CVA R/O Discharge Diagnosis: Unspecified intermittent visual disturbance - possible ophthalmic migraine Condition on Discharge: Good Activity: Resume your previous activity Non-emergency contact: Primary Care Provider Call non-emergency contact if: you have any medication questions and your symptoms worsen Follow-up/Referrals: Hussein Rudolph MD [Physician] - (hospital follow up, suspected ophthalmic migraine 2-3 weeks, discussed with Dr Rudolph) Delisa Hernández DO [Primary Care Provider] - 06/07/23 1:30 pm Diet: Regular Addtl Attending Provider Instructions: You were admitted to [facility] from May 26-2022 due to intermittent visual disturbance. Brain MRI was negative for stroke. Echocardiogram was normal. Suspect most likely this is ophthalmic migraine vs eye strain from screen use. Recommend follow up with ophthalmology to rule out alternative causes. Appointment with neurology as above in 2-3 weeks as follow up if continues to occur. If persistent and new symptoms such as facial droop or extremity weakness recommend returning to the ER. Kind regards, Dr Leonidas Johnson Pending Studies at Discharge: No Stand-Alone Forms: My [facility], Smoking Cessation Medications and DC Order Prescriptions: Continued cholecalciferol (vitamin D3) 25 mcg (1,000 unit) capsule 25 mcg PO DAILY 90 Days Qty: 90 0RF acetaminophen [Tylenol Extra Strength] 500 mg Tablet 1,000 mg PO Q6H PRN (Reason: Fever Or Pain) Discharge Orders: Discharge Order (Routine); Ordered 05/27/23 Ordered By: Leonidas Johnson Admission Data Admit Date/Time: 05/26/23 16:30 Attending Provider: Leonidas Johnson Admit Provider: Zhang Bolaños Primary Care Provider: Delisa Hernández Other Providers: Zhang Bolaños Other Interventions: Discharge Summary Assessment (RN) Last Done: 05/27/23 11:25 Coding Diagnoses
--- NOTE | 2023-05-28 07:03 | Electrocardiogram Report ---
Test Reason : Blood Pressure : / mmHG Vent. Rate : 066 BPM Atrial Rate : 066 BPM P-R Int : 132 ms QRS Dur : 082 ms QT Int : 408 ms P-R-T Axes : 018 051 -16 degrees QTc Int : 427 ms Normal sinus rhythm Nonspecific ST and T wave abnormality Abnormal ECG When compared with ECG of 16-MAY-2021 17:17, No significant change was found Confirmed by Wilfred Langley ([id number]) on 05/28/2023 7:03:09 AM Referred By: Delisa Hernández Confirmed By:Wilfred Langley
== END 2023-05-27 12:56 | disposition home or self-care (01) | DRG 103 ==
LOC: ED 10:36 → SUATTDRO 16:30 → 2N 16:30

== ENCOUNTER 2024-01-06 08:19 | Observation (INO) ==
--- NOTE | 2023-12-21 14:01 | Anesthesiology Consultation ---
Date of Service December 21, 2023 History Surgery Operation Date: 01/06/24 11:00 Proposed Procedures p Colonoscopy Dr. Wayne - Bret Wayne, DO Height/Weight Height: 5 ft 8 in Weight: 108.862 kg Allergies Allergy/AdvReac Type Severity Reaction Status Date / Time No Known Allergies Allergy Verified 12/19/23 09:15 Medications Home Medications Medication Instructions Recorded Confirmed Last Taken acetaminophen 500 mg tablet 1,000 mg PO Q6H PRN Fever Or Pain 05/16/21 12/19/23 Unknown (Tylenol Extra Strength) cholecalciferol (vitamin D3) 25 25 mcg PO Q OTHER DAY 12/19/23 12/19/23 Unknown mcg (1,000 unit) capsule Past Medical History Medical History (Updated 12/20/23 @ 15:30 by Yaneth Dunlap RN) Hx of sleep apnea History of COVID-19 hospitalized at [facility] - 2019 - not intubated - resolved Hx of migraine headaches Seasonal allergies Past Surgical History Surgical History History of endometrial ablation no anesthesia, in office Hx of wisdom tooth extraction History of bilateral carpal tunnel release Social History Smoking Status: Former smoker Do You Dip or Chew Tobacco: No Smoking End Date: quit 2017, (1 Pack every few days) Hx Alcohol Use: Yes Alcohol type: hard liquor alcohol intake frequency: a few times a month Hx Substance Use: No substance use type: does not use
[2024-01-06] MEDS: SODIUM CHLORIDE 0.9% 500 ML IV SCH (09:20)
[2024-01-06] MEDS ORDERED: SIMETHICONE (ENDO) IR PRN (09:30)
--- NOTE | 2024-01-06 09:32 | History & Physical Report ---
Date of Service January 06, 2024 Assessment & Plan (1) Colon cancer screening: Plan: Proceed with colonoscopy Plan Screening History of Present Illness Chief Complaint: Screening Primary Care Provider: Delisa Hernández DO 48 yo CF who presents for screening colonoscopy. Allergies Allergy/AdvReac Type Severity Reaction Status Date / Time No Known Allergies Allergy Verified 01/06/24 08:59 Home Medications Medication Instructions Recorded Confirmed Type acetaminophen 500 mg tablet 1,000 mg PO Q6H PRN Fever Or Pain 05/16/21 01/06/24 History (Tylenol Extra Strength) cholecalciferol (vitamin D3) 25 25 mcg PO Q OTHER DAY 12/19/23 01/06/24 History mcg (1,000 unit) capsule peg [id number] See Rx Instructions PO .COMPLEX #2 12/22/23 01/06/24 Rx 178.7-7.3-0.5-1.12-0.9 gram oral mL soln (Suflave) Past Med/Surg History Problem List (Updated 01/06/24 @ 09:32 by Bret Wayne DO) Colon cancer screening Paresthesia (Acute) Headache (Acute) Visual disturbance (Acute) Family history of blood clots Vitamin D deficiency Elevated ferritin Vision disturbance Acute URI of multiple sites History of carpal tunnel surgery [facility]. [facility] Obstructive sleep apnea Hypersomnia Post-COVID chronic cough Acute blood loss anemia COVID Headache Fatigue Goiter (Acute) no bx, US monitored - no changes Premenstrual syndrome (Acute) Reflex incontinence (Acute) Vitamin D insufficiency (Acute) Diarrhea Headache Medical History (Updated 01/06/24 @ 09:32 by Bret Wayne DO) Hx of sleep apnea History of COVID-19 hospitalized at [facility] - 2019 - not intubated - resolved Hx of migraine headaches Seasonal allergies Surgical History History of endometrial ablation no anesthesia, in office Hx of wisdom tooth extraction History of bilateral carpal tunnel release Social History Smoking Status: Former smoker Tobacco Type: Cigarettes Smoking End Date: quit 2017, (1 Pack every few days); Second Hand Exposure: No; Do You Dip or Chew Tobacco: No; Tobacco Cessation Education Requested by Patient: No Hx Alcohol Use: Yes Alcohol type: hard liquor Hx Substance Use: No Preferred Language: Albanian Communication Ability: Effective Policy Manager Required: No Beliefs That Will Affect Care: None marital status: Current Living Situation: Spouse Current Living Situation Comment: Lives with at home current occupational status: employed 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 How many Children do You have: 2 Other Information That Helps Us Care for You: No Feels Safe at Home: Yes Safety Concerns: Feels Safe At This Time Diet: regular caffeine: Yes Dental Care, Regularly: No Assistive Devices: Contacts Physical Exam Constitutional: WD/WN, vitals as above Respiratory: normal respiratory effort, lungs clear to auscultation Cardiovascular: RRR, no murmur, no edema Gastrointestinal (Abdomen): normal bowel sounds, soft, nontender, no hepatosplenomegaly Results & Data Vital Signs (Past 12 Hours) Vital Signs Temp Pulse Resp BP O2 Del Method 01/06/24 09:15 36.2 C L 84 18 120/79 Room Air Supervising Physician Co-Signing Physician Notes 48 yo CF who presents for screening colonoscopy. Coding Level of Care Code None Diagnoses Colon cancer screening Z12.11
--- NOTE | 2024-01-06 11:20 | GI REPORT ---
Patient Name: Whit Paul Procedure Date: 01/06/2024 10:41 AM Date of : 1975 Admit Type: Outpatient Age: 48 Gender: Female Attending MD: Bret Wayne DO, Procedure: Colonoscopy Providers: Bret Wayne DO Referring MD: Delisa Hernández DO Indications: Screening for colorectal malignant neoplasm Medicines: Monitored Anesthesia Care Complications: Patient had multiple episodes of bilious vomiting. Estimated Blood Loss: Estimated blood loss: none. Procedure: Pre-Anesthesia Assessment: - Prior to the procedure, a History and Physical was performed, and patient medications and allergies were reviewed. The patient's tolerance of previous anesthesia was also reviewed. The risks and benefits of the procedure and the sedation options and risks were discussed with the patient. All questions were answered, and informed consent was obtained. Prior Anticoagulants: The patient has taken no anticoagulant or antiplatelet agents. ASA Grade Assessment: II - A patient with mild systemic disease. After reviewing the risks and benefits, the patient was deemed in satisfactory condition to undergo the procedure. After I obtained informed consent, the scope was passed under direct vision. Throughout the procedure, the patient's blood pressure, pulse, and oxygen saturations were monitored continuously. The scope was introduced through the anus and advanced to the terminal ileum. The colonoscopy was performed without difficulty. The patient vomited during scope withdrawal, and the scope was withdrawn. This did not allow for adequate examination of colonic mucosa. The quality of the bowel preparation was good. The terminal ileum, the ileocecal valve and the appendiceal orifice were photographed. Findings: The perianal and digital rectal examinations were normal. The colon (entire examined portion) appeared normal, however, the scope was withdrawn prematurely due to patient's vomiting. Impression: - The entire examined colon is normal. - No specimens collected. Recommendation: - Resume previous diet. - Continue present medications. - Repeat colonoscopy in 3 months because the examination was incomplete. - Return to primary care physician as previously scheduled. Bret Wayne DO 01/06/2024 11:19:44 AM This report has been signed electronically. Note Initiated On: 01/06/2024 10:41 AM Number of Addenda: 0 I attest to the content of the Intraoperative Record and orders documented therein, exceptions below {[id number]}
[2024-01-06] MEDS: ALBUT/IPRATROP 3MG/0.5MG NEB 3 ML VIAL NEB STA (11:30)
--- NOTE | 2024-01-06 12:00 | Communication Note ---
Date of Service: January 06, 2024 Close to end of procedure, pt had approx 50ml green/coffee ground emesis. Procedure aborted at this point. Pt turned on side and suctioned. Zofran 4mg IV x1. Pt with short desat to approx 75% responded quickly to BVM with resolution of sats. BP and HR stable throughout. On exam, RLL diminished BS and wheeze. To endo PACU, stable. Pt given duoneb x1 but unable to wean O2 from 6L/min via oxymask. Pt given ISB and instructed on use. Sats 91-92% 6L/min. Pt again feels nauseated and given dexamethasone 4mg IVx1 and reglan 10mg IVx1. CXR taken without consolidation noted RLL. Slight poor respiratory effort. Pt awake and cooperative. Will monitor, but may require overnight obs if unable to wean O2.
--- NOTE | 2024-01-06 12:18 | XRay Report ---
XR chest 1V portable HISTORY: Postop hypoxia and possible aspiration COMPARISON: Chest 05/16/2021. FINDINGS: No pneumothorax. No pleural effusions. The cardiac silhouette is mildly enlarged. No eviden ce for pulmonary edema. The upper lung zones are clear. There are faint patchy bibasilar densities. T his could represent an aspiration pneumonitis. IMPRESSION: Faint patchy bibasilar densities. This raises the possibility of an aspiration pneumonitis. ACT 112: Negative or not required by law. Electronically signed by: Tommy Martin M.D. 01/06/2024 12:17 PM
--- NOTE | 2024-01-06 13:14 | Communication Note ---
Date of Service: January 06, 2024 01/06/24 XR chest 1V portable HISTORY: Postop hypoxia and possible aspiration COMPARISON: Chest 05/16/2021. FINDINGS: No pneumothorax. No pleural effusions. The cardiac silhouette is mildly enlarged. No evidence for pulmonary edema. The upper lung zones are clear. There are faint patchy bibasilar densities. This could represent an aspiration pneumonitis. IMPRESSION: Faint patchy bibasilar densities. This raises the possibility of an aspiration pneumonitis. Spoke with the patient and her about her postoperative course and the details of her emesis towards the end of the procedure. Discussed the results of the chest x-ray. She is unable to be weaned from 6L oxymask at this time. On exam, lungs are without wheeze but slightly diminished movement. She is otherwise awake alert and oriented x 3 in no acute distress. At this time, recommend admission for observation. Will coordinate with [facility] physician group hospitalist as she sees a [facility] physician group PCP. All questions of the patient and were answered.
--- NOTE | 2024-01-06 13:28 | Anesthesiology Progress Note ---
Date of Service January 06, 2024 Anesthesia Post Procedure Vital Signs Vital Signs: Temp Pulse Resp BP Pulse Ox O2 Del Method O2 Flow Rate 01/06/24 12:42 93 Oxymask 6 01/06/24 12:25 90 Oxymask 6 01/06/24 12:12 91 Oxymask 6 01/06/24 11:54 103 H 24 97/59 L 92 Oxymask 6 01/06/24 11:39 117 H 24 107/67 92 Oxymask 6 01/06/24 11:30 105 H 18 92 Oxymask 8 01/06/24 11:24 36.2 C L 105 H 24 103/64 94 Oxymask 6 01/06/24 09:15 36.2 C L 84 18 120/79 Room Air Transfer of Care Handoff Completed per policy Notes Mental Status: alert / awake / arousable Patient Amnestic to Procedure: Yes Nausea / Vomiting: adequately controlled Pain: adequately controlled Airway Patency, RR, SpO2: see Notes below BP & HR: stable & adequate Hydration State: stable & adequate Anesthetic Complications: see Notes below Notes: Patient stable on 6L/min oxymask. Possible aspiration as pt vomited at end of p rocedure. Attempted to wean O2 but unable, therefore spoke with hospitalist about direct admit. Spoke with pt and and answered all questions.
[2024-01-06] MEDS ORDERED: ACETAMINOPHEN 500 MG TAB PO PRN (13:38)
[2024-01-06] MEDS ORDERED: ONDANSETRON INJ 2 MG/ML 2 ML VIAL IV PRN (13:39)
[2024-01-06] MEDS ORDERED: MAGNESIUM HYDROXIDE SUSP 30 ML UDC PO PRN (13:39)
[2024-01-06] MEDS: METOCLOPRAMIDE HCL INJ 5 MG/ML 2 ML VIAL ONE (15:55)
[2024-01-06] MEDS: DEXAMETHASONE SOD INJ 4 MG/ML VIAL ONE (15:55)
[2024-01-06] MEDS: PROPOFOL IV EMULSION 10 MG/ML 20 ML VIAL IV ONE ×2 (15:55)
[2024-01-06] MEDS: ONDANSETRON INJ 2 MG/ML 2 ML VIAL ONE (15:55)
[2024-01-06] MEDS: LIDOCAINE 2% 2 ML VIAL/AMP(20MG/ML) INFIL ONE (15:55)
[2024-01-06] MEDS: MIDAZOLAM HCL 1 MG/ML 2ML VIAL ONE (15:55)
[2024-01-06 16:35] LABS: Hematocrit (blood only) 42.8 % (37.0-47.0); Hemoglobin 14.7 g/dl (12.0-16.0); Mean Corpuscular Hemoglobin 30.9 pg (25.0-34.0); Mean Corpuscular Hgb Conc 34.3 g/dL (32.0-36.0); Mean Corpuscular Volume 90.1 fL (80.0-100.0); Mean Platelet Volume 10.7 fL (9.4-12.4); Platelet Count 229 K/uL (130-400); RDW Coefficient of Variation 12.2 % (11.5-14.5); RDW Standard Deviation 40.3 fL (36.4-46.3); Red Blood Count 4.75 M/uL (4.20-5.40); White Blood Count 17.57 K/ul (4.8-10.8)
[2024-01-06 16:48] LABS: BUN Creatinine Ratio 18.8 (10-20); Calcium 8.9 mg/dl (8.6-10.3); Creatinine Clr Calc Pharmacy 114.1 ml/min; Est GFR (African American) 101.8 ml/min; Est GFR (Non-African American) 87.8 ml/min; Potassium 4.1 mmol/L (3.5-5.1)
[2024-01-06 16:53] LABS: Basophils # (auto) 0.04 K/uL (0.00-0.20); Basophils % (auto) 0.2 %; Immature Granulocytes # (auto) 0.07 K/uL (0.01-0.20); Immature Granulocytes % (auto) 0.4 %; Lymphocytes # (auto) 0.58 K/uL (1.20-3.40); Lymphocytes % (auto) 3.3 %; Monocytes # (auto) 0.78 K/uL (0.11-0.59); Monocytes % (auto) 4.4 %; Neutrophils % (auto) 91.7 %; Toxic Vacuolation 1+
[2024-01-06] MEDS: AMPICILLIN/SULBACTAM SOD 3,000 MG in SODIUM CHLOR 0.9% MINI-B 100 ML IV SCH (17:14)
[2024-01-06] MEDS ORDERED: AMPICILLIN SOD/SULBACTAM SOD 3 GM VIAL IV SCH (18:00)
--- NOTE | 2024-01-06 19:09 | History & Physical Report ---
Date of Service January 06, 2024 Assessment & Plan (1) Acute respiratory failure with hypoxemia: Plan: Acute respiratory failure with hypoxia, currently on 6 L of oxygen mainly due to to aspiration of gastric contents during colonoscopy Chest x-ray consistent with bilateral densities Oxygen supplementation to maintain pulse ox above 92% Wean off oxygen, as tolerated IV antibiotics (2) Aspiration pneumonitis: Plan: IV antibiotics Repeat chest x-ray tomorrow Admission and Anticipated Discharge Date Admission Date: January 06, 2024 History of Present Illness Chief Complaint: aspiration during colonoscopy Primary Care Provider: Delisa Hernández DO 48-year-old female with history of obstructive sleep apnea, vitamin D deficiency, who underwent screening colonoscopy today, who had developed emesis toward the end of procedure, developed acute respiratory failure, placed on 6 L of oxygen admitted to PCU, postprocedure. Reports some tongue numbness, painful swallowing, reports some shortness of breath, no chest pain. She tolerated clear liquid diet. Reports some mild headache. No other symptoms. Her chest x-ray is consistent with bilateral densities, consistent with aspiration pneumonitis. She denies fever or chills. Allergies Allergy/AdvReac Type Severity Reaction Status Date / Time No Known Allergies Allergy Verified 01/06/24 08:59 Home Medications Medication Instructions Recorded Confirmed Type acetaminophen 500 mg tablet 1,000 mg PO Q6H PRN Fever Or Pain 05/16/21 01/06/24 History (Tylenol Extra Strength) cholecalciferol (vitamin D3) 25 25 mcg PO Q OTHER DAY 12/19/23 01/06/24 History mcg (1,000 unit) capsule Past Med/Surg History Problem List (Updated 01/06/24 @ 19:06 by Sandi Grullon MD) Aspiration pneumonitis Acute respiratory failure with hypoxemia Colon cancer screening Paresthesia (Acute) Headache (Acute) Visual disturbance (Acute) Family history of blood clots Vitamin D deficiency Elevated ferritin Vision disturbance Acute URI of multiple sites History of carpal tunnel surgery [facility]. [facility] Obstructive sleep apnea Hypersomnia Post-COVID chronic cough Acute blood loss anemia COVID Headache Fatigue Goiter (Acute) no bx, US monitored - no changes Premenstrual syndrome (Acute) Reflex incontinence (Acute) Vitamin D insufficiency (Acute) Diarrhea Headache Medical History (Updated 01/06/24 @ 19:06 by Sandi Grullon MD) Hx of sleep apnea History of COVID-19 hospitalized at [facility] - 2019 - not intubated - resolved Hx of migraine headaches Seasonal allergies Surgical History History of endometrial ablation no anesthesia, in office Hx of wisdom tooth extraction History of bilateral carpal tunnel release Social History Smoking Status: Never smoker Tobacco Type: Cigarettes Smoking End Date: quit 2017, (1 Pack every few days); Second Hand Exposure: No; Do You Dip or Chew Tobacco: No; Tobacco Cessation Education Requested by Patient: No Hx Alcohol Use: No Hx Substance Use: No Preferred Language: [place] Communication Ability: Effective Rigging Worker Required: No Beliefs That Will Affect Care: None marital status: Current Living Situation: Spouse Current Living Situation Comment: Lives with at home current occupational status: employed 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 How many Children do You have: 2 Other Information That Helps Us Care for You: No Feels Safe at Home: Yes Safety Concerns: Feels Safe At This Time Diet: regular caffeine: Yes Dental Care, Regularly: No Assistive Devices: None Review of Systems Review of Systems: All systems reviewed & are unremarkable except as noted in HPI & below Physical Exam Physical Exam: Head atraumatic normocephalic Eyes sclera anicteric Neck supple no JVD Lungs diminished breath sounds at bases Heart S1-S2 regular, no murmurs gallops rubs Abdomen soft, nontender , nondistended, BS present Extremities no clubbing no cyanosis, pulses present Results & Data Results & Data Vital Signs (Past 12 Hours) Vital Signs Temp Pulse Resp BP Pulse Ox O2 Del Method O2 Flow Rate 01/06/24 16:00 37.2 C 116 H 24 119/66 94 Oxymask 6 01/06/24 15:16 98 H 94 Oxymask 6 01/06/24 14:40 96 H 95 Oxymask 6 01/06/24 14:04 100 H 93 Oxymask 6 01/06/24 13:40 95 Oxymask 6 01/06/24 13:27 93 Oxymask 6 01/06/24 12:42 93 Oxymask 6 01/06/24 12:25 90 Oxymask 6 01/06/24 12:12 91 Oxymask 6 01/06/24 11:54 103 H 24 97/59 L 92 Oxymask 6 01/06/24 11:39 117 H 24 107/67 92 Oxymask 6 01/06/24 11:30 105 H 18 92 Oxymask 8 01/06/24 11:24 36.2 C L 105 H 24 103/64 94 Oxymask 6 01/06/24 09:15 36.2 C L 84 18 120/79 Room Air Laboratory Results Abnormal lab results 01/06/24 Range/Units 16:08 WBC 17.57 H (4.8-10.8) K/ul Neut # (Auto) 16.10 H (1.40-6.50) K/uL Lymph # (Auto) 0.58 L (1.20-3.40) K/uL Sibley # (Auto) 0.78 H (0.11-0.59) K/uL Sodium 135 L (136-145) mmol/L Carbon Dioxide 20 L (21-32) mmol/L Glucose 127 H (70-99(Fasting)) mg/dl Diagnostic Findings Chest X-Ray 01/06/24 11:47 XR chest 1V portable HISTORY: Postop hypoxia and possible aspiration COMPARISON: Chest 05/16/2021. FINDINGS: No pneumothorax. No pleural effusions. The cardiac silhouette is mildly enlarged. No evidence for pulmonary edema. The upper lung zones are clear. There are faint patchy bibasilar densities. This could represent an aspiration pneumonitis. IMPRESSION: Faint patchy bibasilar densities. This raises the possibility of an aspiration pneumonitis. ACT 112: Negative or not required by law. Electronically signed by: Tommy Martin M.D. 01/06/2024 12:17 PM Code Status & VTE Plan Code Status full PG Care Time/CCT Total # of Minutes Spent Total Time Spent with Patient: Total time spent is greater than 50% in coordination of care (as documented) at patient's floor/unit and/or counseling patient: Coding Level of Care Code 36290 INT INP/OBS CARE 3/75MIN Diagnoses Acute respiratory failure with hypoxemia J96.01 Aspiration pneumonitis J69.0
[2024-01-07 06:23] LABS: Basophils # (auto) 0.02 K/uL (0.00-0.20); Basophils % (auto) 0.2 %; Hemoglobin 12.8 g/dl (12.0-16.0); Immature Granulocytes # (auto) 0.05 K/uL (0.01-0.20); Immature Granulocytes % (auto) 0.4 %; Lymphocytes # (auto) 1.24 K/uL (1.20-3.40); Lymphocytes % (auto) 10.4 %; Mean Corpuscular Hemoglobin 30.5 pg (25.0-34.0); Mean Corpuscular Hgb Conc 33.7 g/dL (32.0-36.0); Mean Corpuscular Volume 90.5 fL (80.0-100.0); Mean Platelet Volume 10.7 fL (9.4-12.4); Monocytes # (auto) 0.65 K/uL (0.11-0.59); Monocytes % (auto) 5.4 %; Neutrophils # (auto) 9.99 K/uL (1.40-6.50); Neutrophils % (auto) 83.6 %; Platelet Count 233 K/uL (130-400); RDW Coefficient of Variation 12.3 % (11.5-14.5); RDW Standard Deviation 40.4 fL (36.4-46.3); White Blood Count 11.95 K/ul (4.8-10.8)
[2024-01-07 06:36] LABS: Calcium 8.5 mg/dl (8.6-10.3); Creatinine Clr Calc Pharmacy 122.2 ml/min; Est GFR (African American) 108.3 ml/min; Est GFR (Non-African American) 93.4 ml/min; Potassium 4.1 mmol/L (3.5-5.1)
--- NOTE | 2024-01-07 10:43 | XRay Report ---
XR chest 1V portable HISTORY: aspiration COMPARISON: Chest 01/06/2024. FINDINGS: No pneumothorax. No pleural effusions. The heart remains mildly enlarged. No evidence for p ulmonary edema. No acute fractures identified. Faint patchy bibasilar densities have improved. IMPRESSION: Improvement in the bibasilar densities which may represent resolving atelectasis or pneumonitis. ACT 112: Negative or not required by law. Electronically signed by: Tommy Martin M.D. 01/07/2024 10:42 AM
[2024-01-07] MEDS: BENZOCAINE 20% (ORAJEL) 11.9 GM TUBE MT PRN (11:07)
[2024-01-07] MEDS: CHLORHEXIDINE GLUCONATE 0.12% 480 ML MT SCH (11:07)
--- NOTE | 2024-01-07 12:41 | Discharge Summary ---
Date of Service January 07, 2024 Admission HPI Per Admitting Provider 48-year-old female with history of obstructive sleep apnea, vitamin D deficiency, who underwent screening colonoscopy today, who had developed emesis toward the end of procedure, developed acute respiratory failure, placed on 6 L of oxygen admitted to PCU, postprocedure. Reports some tongue numbness, painful swallowing, reports some shortness of breath, no chest pain. She tolerated clear liquid diet. Reports some mild headache. No other symptoms. Her chest x-ray is consistent with bilateral densities, consistent with aspiration pneumonitis. She denies fever or chills. Principal Diagnosis Aspiration pneumonia or pneumonitis Discharge Exam PHYSICAL EXAMINATION Last 24h vital signs reviewed, see documentation in flowsheet General: comfortable appearing, no distress HEENT: Normocephalic, atraumatic, pupils round and equal, sclerae anicteric, no conjunctival injection, moist mucus membranes 2x0.8 cm linear ulcer on left upper hard palate, mild surrounding erythema, white/yellow base without drainage, mild pharyngeal erythema on right Lungs: Normal respiratory effort. Clear to auscultation bilaterally except mild left basilar crackle. No wheeze Heart: Regular rate and rhythm, no murmurs. No JVD Abdomen: Soft, nontender, nondistended. Bowel sounds present. Extremities: Warm, dry, well-perfused. No extremity edema. Neuro: Alert and oriented x 4, face symmetric, moves 4 extremities well Psych: Normal affect and behavior Discharge Data Allergies Allergy/AdvReac Type Severity Reaction Status Date / Time No Known Allergies Allergy Verified 01/06/24 08:59 Procedures Performed Operation Date: 01/06/24 10:00 Actual Procedures p Colonoscopy - Bret Giles Case, DO Hospital Course (1) Acute respiratory failure with hypoxemia: 48 y/o woman admitted with acute respiratory failure with hypoxia due to to aspiration of gastric contents during colonoscopy Came down to 6 L of oxygen by the time she left recovery, improved throughout the night, on room air by time of discharge CXR with bibasilar opacities consistent with aspiration, repeat CXR 01/06 with improved bibasilar opacities No leukocytosis or fever but procalcitonin increased to 1.5 so will continue course of antibiotics in case of aspiration pneumonia -started on amp-sulbactam at admission, will complete 5-7d course of augmentin, probiotic (2) Aspiration pneumonitis: Aspiration pneumonia or pneumonitis, resolving, see above Plan Palate ulcer - this linear ulcer was probably result of trauma during yankauer suctioning during the aspiration -able to tolerate soft food -peridex S/S for a week and orajel PRN Tip of tongue numbness - wonder about anesthesia side effect or mild nerve injury during suctioning - mild and likely to resolve Follow up with gastroenterology and primary care Total Time Total Time Spent Total Time Spent (In Minutes): <30 minutes Discharge Plan Discharge Items Patient Disposition: Home - Self-Care Reason For Visit: ASPIRATION Discharge Diagnosis: Internal hemorrhoids Aborted procedure due to vomiting Activity: Resume your previous activity Non-emergency contact: Primary Care Provider Call non-emergency contact if: your symptoms worsen, your pain is unusual for you and your temperature is above 101 Follow-up/Referrals: Delisa Hernández DO [Primary Care Provider] - 01/23/24 1:30 pm (Hospital follow up scheduled January 22 at 1:30 ) Diet: Regular Addtl Attending Provider Instructions: You were treated for aspiration during colonoscopy procedure, related to vomiting during anesthesia/sedation This caused temporary low oxygen level, which is resolving Your repeat chest x-ray today was improved compared to yesterday Your blood test shows you may benefit from a course of antibiotics - I prescribed a week of amoxicillin-clavulanate to cover aspiration type pneumonia -its a good idea to take a probiotic for around 2 weeks because you were treated with broad-spectrum antibiotics Cough, shortness of breath should be gradually improving There is a mouth ulcer that appears to have been caused by suctioning -use chlorhexidine mouth rinses 3-4x a day for about a week to prevent infection -you can use Ora-gel or similar topical oral anesthetic as needed - this is available at the drugstore -you can also make "magic mouthwash" by mixing equal portions of a small amount of maalox with liquid children's diphenhydramine (benadryl) - swish and spit out It has been a pleasure taking care of you in the hospital Maddi Guerra MD IF YOU EXPERIENCE ANY OF THE FOLLOWING SYMPTOMS AFTER YOUR PROCEDURE CALL YOUR PRIMARY CARE PHYSICIAN IMMEDIATELY OR SEEK MEDICAL ATTENTION AT YOUR NEAREST EMERGENCY ROOM: 1. SEVERE abdominal pain or bloating 2. FEVER greater than 101.1 degrees within 24 hours after the procedure 3. LARGE AMOUNTS OF BLEEDING greater than 2-3 tablespoons. If you had a polyp/s removed or have hemorrhoids, a small amount of blood from the rectum is to be expected. 4. A localized irritation of the vein may occur at the site of the IV injection. Hot moist packs to the vein applied 4-6 times per day may reduce pain and irritation. A tender lump may develop and remain for several weeks to several months, but goes away eventually. If the area continues to be painful or becomes red and hot to the touch, please contact your primary care provider. For routine questions call [facility] at [phone]. * Avoid the use of alcohol and sedatives for 24 hours. Pending Studies at Discharge: No Stand-Alone Forms: My [facility], Smoking Cessation Medications and DC Order Prescriptions: New amoxicillin-pot clavulanate 875-125 mg Tablet 1 tab PO BIDM Qty: 14 0RF Continued acetaminophen [Tylenol Extra Strength] 500 mg Tablet 1,000 mg PO Q6H PRN (Reason: Fever Or Pain) cholecalciferol (vitamin D3) 25 mcg (1,000 unit) capsule 25 mcg PO Q OTHER DAY Discontinued Suflave 178.7-7.3-0.5 gram recon soln See Rx Instructions PO .COMPLEX Qty: 2 0RF Rx Instructions: orally; TAKE FIRST DOSE AT 6 PM AND SECOND DOSE 6 HOURS PRIOR TO PROCEDURE BIN: [id number] N: 2001 GROUP: [id number] Discharge Orders: Discharge Order (Routine); Ordered 01/07/24 Ordered By: Maddi Guerra Admission Data Admit Date/Time: 01/06/24 13:39 Attending Provider: Maddi Guerra Admit Provider: Sandi Grullon Primary Care Provider: Delisa Hernández Other Interventions: Discharge Summary Assessment (RN) Last Done: 01/07/24 13:29 Coding Level of Care Code 58564 IN/OBS DISCH 30 MIN/LESS Diagnoses Acute respiratory failure with hypoxemia J96.01 Aspiration pneumonitis J69.0
[2024-01-07] MEDS ORDERED: ADVANCED PROBIOTIC 625 MG CAPSULE PO SCH (12:45)
[2024-01-07] MEDS ORDERED: AMOXICILLIN/CLAVULANATE 875 MG TAB PO SCH (17:00)
== END 2024-01-07 14:10 | disposition home or self-care (01) | DRG 177 ==
LOC: ENDO 08:19 → INTOOBSV 13:39 → 4W 13:39 → SUATTDRO 13:39